=== PATIENT | female | born 1955 | race Caucasian/White ===

== ENCOUNTER → 2016-08-11 | Outpatient (CLI) | payer BC ==
[~2016-08-11] MED LIST: ESCI1TAB6 PO; GABA-113 PO; PRLSR20 PO; TRAM-10 PO; ZOLP5TAB PO
== END | disposition home or self-care (01) ==
LOC: C.PAPS 09:48
PROVIDERS: ATTEND Obstetrics & Gynecology
DX: Z01.419 Encounter for gynecological examination (general) (routine) without abnormal findings (principal)

== ENCOUNTER → 2016-10-28 | Outpatient (CLI) | payer BC ==
--- NOTE | 2016-10-29 13:49 | MAMMOGRAPHY REPORT ---
BILATERAL DIGITAL SCREENING MAMMOGRAM TOMOSYNTHESIS WITH CAD: 10/28/2016 CLINICAL HISTORY: Routine screening. Patient has no complaints. TECHNIQUE: Breast tomosynthesis in addition to standard 2D mammography was performed. Current study was also evaluated with a Computer Aided Detection (CAD) system. COMPARISON: Comparison is made to exams dated: 08/29/2013 mammogram, 07/19/2012 mammogram, 07/15/2011 ma mmogram, 07/10/2010 mammogram, 07/05/2009 mammogram - [facility], and 05/31/2008. BREAST COMPOSITION: The tissue of both breasts is extremely dense, which lowers the sensitivity of m ammography. FINDINGS: The parenchymal pattern is unchanged. No developing mass, architectural distortion or clus ter of suspicious microcalcifications is seen in either breast. IMPRESSION: ACR BI-RADS CATEGORY 2: BENIGN There is no mammographic evidence of malignancy. A 1 year screening mammogram is recommended. The pa tient will receive written notification of the results. Approximately 10% of breast cancers are not detected with mammography. A negative mammographic report should not delay biopsy if a clinically suggestive mass is present. Tea Springer M.D. ay/:10/28/2016 16:34:40 Demand Equipment Repairer: Anna GRIFFIN(Cielo)(M), [facility] letter sent: Normal 1/2 BI-RADS Code: ACR BI-RADS Category 2: Benign
== END | disposition home or self-care (01) ==
LOC: C.MAMM 15:46
PROVIDERS: ATTEND Obstetrics & Gynecology
DX: Z12.31 Encounter for screening mammogram for malignant neoplasm of breast (principal)

== ENCOUNTER 2021-01-06 13:16 | Inpatient (IN) ==
[2021-01-06 14:04] LABS: Appearance Urine Clear (Clear); Bilirubin Urine Negative (Negative); Blood Urine Negative (Negative); Color Urine Yellow; Glucose Urine UA Negative (Negative); Ketones Urine Negative (Negative); Leukocyte Esterase Urine Negative (Negative); Nitrite Urine Negative (Negative); Protein Urine Negative (Negative); Specific Gravity Urine 1.005 (1.000-1.030); Urobilinogen Urine Negative (Negative); pH Urine 8.5 (4.5-7.5)
--- NOTE | 2021-01-06 14:06 | Emergency Department Note ---
Impression & Plan Anxiety, Depression ED Provider Note NAME: MICHAEL MONTOYA AGE: 65 SEX: F : 1955 ARRIVES VIA: Ambulance INFORMANT: Patient ED PROVIDER(S): Galileo Goodwin DO CHIEF COMPLAINT: Depression HPI: Patient is a 65-year-old female who presents the ER for anxiety. She notes that she has not been eating or drinking much for the past several weeks. She has been sleeping all day. She does not want to leave her bed. She was seen and evaluated here and discharged. She was seen by her PCP who referred her in for admission to [facility]. She needs medical clearance. Denies any headache or change in vision. No chest pain or shortness of breath. No nausea, or vomiting. She notes that she is having trouble having bowel movements but she is not eating anything. Last bowel movement was within the past 48 hours. She still passing gas. No dysuria, urgency, or frequency. Denies any suicidal homicidal ideations. ROS: See above HPI for pertinent positives & negatives. A total of 10 systems reviewed and were otherwise negative. PAST MEDICAL HISTORY:See Below PAST SURGICAL HISTORY:See Below FAMILY HISTORY:See Below SOCIAL HISTORY:See Below HOME MEDICATIONS:See Below ALLERGIES:See Below VITALS:See Below PHYSICAL EXAMINATION: GENERAL: Sitting up in bed, alert, well appearing, well nourished, no distress, non-toxic EYE EXAM: normal conjunctiva. PERRL and EOM's grossly intact. OROPHARYNX: no exudate, no erythema, lips, buccal mucosa, and tongue normal and mucous membranes are moist NECK: supple, no nuchal rigidity, no adenopathy, non-tender LUNGS: Clear to auscultation. Normal chest wall mechanics HEART: no murmurs, S1 normal and S2 normal ABDOMEN: abdomen soft, non-tender, normo-active bowel sounds, no masses, no rebound or guarding. BACK: Back is symmetrical on inspection and there is no deformity, no midline tenderness, no CVA tenderness. SKIN: no rashes and no bruising UPPER EXTREMITIES: upper extremities are grossly normal. LOWER EXTREMITIES: No pitting edema. NEURO EXAM: Normal sensorium, cranial nerves II-XII grossly intact, normal speech, no gross weakness of arms, no gross weakness of legs. PSYCH: Denies any suicidal homicidal ideations. No auditory or visual hallucinations. MEDICAL DECISION MAKING: Patient is a 65-year-old female who presents the ER as she just does not feel right in the head. She notes that she feels as though she is a burden to everyone else. Her is tired of listening to her. She notes that she cannot get out of bed. She not eating or drinking. She was referred and for possible placement. On exam she is completely benign abdominal exam. She has no other complaints otherwise. She notes that she does have trouble going to the bathroom but she has not been eating anything. She was updated bedside and was admitted to 3 S. after review. Observation Status: Indication: Medical stability Patient with no pertinent family history, was seen first at 1330 hrs and was necessary in order to determine medical stability and avoid unnecessary admission. Upon reevaluation, 3.5 hours of observation revealed that the patient should be admitted. Disposition date and time 01/06/2021 at 5 PM. Triage Nursing notes reviewed. Limited review of prior medical records performed Vital Signs: reviewed and remarkable for HTN Differential diagnosis: Mood disorder, infection, hypoglycemia, electrolyte abnormalities, cardiac sources, intracerebral event, toxicologic, trauma, neurologic, as well as other pathologies. ER treatment provided: See below Diagnostics interpreted by me: Laboratory studies: As stated above and show below. Imaging studies: See below Consultation(s): none Procedures: none Critical Care: None Past Med/Surg History Medical History Anxiety GERD (gastroesophageal reflux disease) History of TMJ disorder Hx of glaucoma RT/LEFT EYE LASER PROCEDURE Osteoarthritis Surgical History Fusion of spine CERVICAL (GOOD ROM) History of bilateral tubal ligation History of colonoscopy History of esophagogastroduodenoscopy (EGD) WITH ESOPHAGEAL STRETCHING History of surgery on arm RT RADIAL TUNNEL History of tooth extraction [place] teeth removed Family History Mother Family history of diabetes mellitus Social History Smoking Status: Never smoker Second Hand Exposure: No; Hx Alcohol Use: No Preferred Language: Danish Juvenile Court Liaison Required: No Beliefs That Will Affect Care: None Current Living Situation: Spouse Feels Safe at Home: Yes Assistive Devices: Contacts and Glasses Allergies Allergies Allergy/AdvReac Type Severity Reaction Status Date / Time No Known Allergies Allergy N/A Verified 01/06/21 15:49 Home Meds Home Medications Medication Instructions Recorded Confirmed alprazolam 0.5 mg tablet (Xanax) 0.5 mg PO DAILY PRN 02/20/20 01/06/21 famotidine 20 mg tablet 20 mg PO DAILY PRN 02/20/20 01/06/21 zolpidem 5 mg tablet (Ambien) 10 mg PO HS PRN 02/20/20 01/06/21 acetaminophen 500 mg capsule 1,000 mg PO Q6 PRN 01/06/21 01/06/21 escitalopram oxalate 10 mg tablet 10 mg PO QAM 01/06/21 01/06/21 (Lexapro) omeprazole magnesium 20 mg 20 mg PO DAILY 01/06/21 01/06/21 tablet,delayed release (Prilosec OTC) oxycodone 5 mg tablet 5 mg PO Q4 PRN 01/06/21 01/06/21 Results & Data (ED) Vital Signs Vital Signs - 24 hr 01/06/21 13:35 01/06/21 15:23 01/06/21 17:24 Temperature 36.5 C Temperature Source Oral Pulse Rate 90 90 Pulse Rate [Radial] 86 Pulse Rhythm [Radial] Regular Respiratory Rate 18 18 16 Respiratory Effort / Characteristics Non-Labored Respiratory Depth Normal Respiratory Pattern Regular Blood Pressure 159/96 H 158/97 H Blood Pressure [Right Arm] 139/86 Blood Pressure Mean 117 Blood Pressure Mean [Right Arm] 103 Pulse Oximetry 97 98 97 Oxygen Delivery Method Room Air Room Air Room Air Sepsis Recent Fever Within 48 Hours No Sepsis New/Unexplained Change in Mental Status No Sepsis Action Taken by Nursing No Action Required Laboratory Data Result diagrams: 01/06/21 13:52 01/06/21 13:52 Lab Results 01/06/21 01/06/21 01/06/21 Range/Units 13:26 13:26 13:52 WBC 5.34 (4.8-10.8) K/uL RBC 4.44 (4.2-5.4) M/uL Hgb 13.1 (12.0-16.0) g/dL Hct 39.8 (37-47) % MCV 89.6 (80-100) fL MCH 29.5 (25-34) pg MCHC 32.9 (32-36) g/dL RDW Std Deviation 42.6 (36.4-46.3) fL RDW Coeff of Terry 12.9 (11.5-14.5) % Plt Count 257 (130-400) K/uL MPV 9.4 (7.4-10.4) fL Immature Gran % (Auto) 0.2 % Neut % (Auto) 66.3 % Lymph % (Auto) 23.2 % Isabela % (Auto) 9.4 % Eos % (Auto) 0.7 % Baso % (Auto) 0.2 % Neut # (Auto) 3.54 (1.4-6.5) K/uL Lymph # (Auto) 1.24 (1.2-3.4) K/uL Isabela # (Auto) 0.50 (0.11-0.59) K/uL Eos # (Auto) 0.04 (0-0.5) K/uL Baso # (Auto) 0.01 (0-0.2) K/uL Immature Gran # (Auto) 0.01 (0.00-0.02) K/uL Sodium (136-145) mmol/L Potassium (3.5-5.1) mmol/L Chloride (98-107) mmol/L Carbon Dioxide (21-32) mmol/L Anion Gap (3-11) BUN (7-18) mg/dl Creatinine (0.6-1.2) mg/dl Est Cr Clr Drug Dosing Est GFR ( Amer) ml/min Est GFR (Non-Af Amer) ml/min BUN/Creatinine Ratio (10-20) Glucose (70-99) mg/dl Calcium (8.5-10.1) mg/dl Total Bilirubin (0.2-1) mg/dl AST (15-37) U/L ALT (12-78) U/L Alkaline Phosphatase (45-117) U/L Total Protein (6.4-8.2) gm/dl Albumin (3.4-5.0) gm/dl Globulin (2.5-4.0) gm/dl Albumin/Globulin Ratio (0.9-2) TSH (0.300-4.500) uIu/ml Urine Color Yellow Urine Appearance Clear (Clear) Urine pH 8.5 H (4.5-7.5) Ur Specific [place] 1.005 (1.000-1.030) Urine Protein Negative (Negative) Urine Glucose (UA) Negative (Negative) Urine Ketones Negative (Negative) Urine Blood Negative (Negative) Urine Nitrite Negative (Negative) Urine Bilirubin Negative (Negative) Urine Urobilinogen Negative (Negative) Ur Leukocyte Esterase Negative (Negative) Salicylates (2.8-20) mg/dl Urine Opiates Screen Neg (Neg) Ur Methadone, Qual Neg (Neg) Acetaminophen (10-30) ug/ml Urine Barbiturates Neg (Neg) Ur Phencyclidine (PCP) Neg (Neg) U Amphetamin/Meth Scrn Neg (Neg) MDMA (Ecstasy) Screen Neg (Neg) U Benzodiazepines Scrn Neg (Neg) Ur Cocaine Metabolite Neg (Neg) U Marijuana (THC) Screen Neg (Neg) Ethyl Alcohol mg/dL (0-3) mg/dl COVID-19 Eval Order SARS-CoV-2, RNA, NAAT (NEGATIVE) 01/06/21 01/06/21 01/06/21 Range/Units 13:52 13:52 13:52 WBC (4.8-10.8) K/uL RBC (4.2-5.4) M/uL Hgb (12.0-16.0) g/dL Hct (37-47) % MCV (80-100) fL MCH (25-34) pg MCHC (32-36) g/dL RDW Std Deviation (36.4-46.3) fL RDW Coeff of Terry (11.5-14.5) % Plt Count (130-400) K/uL MPV (7.4-10.4) fL Immature Gran % (Auto) % Neut % (Auto) % Lymph % (Auto) % Isabela % (Auto) % Eos % (Auto) % Baso % (Auto) % Neut # (Auto) (1.4-6.5) K/uL Lymph # (Auto) (1.2-3.4) K/uL Isabela # (Auto) (0.11-0.59) K/uL Eos # (Auto) (0-0.5) K/uL Baso # (Auto) (0-0.2) K/uL Immature Gran # (Auto) (0.00-0.02) K/uL Sodium 141 (136-145) mmol/L Potassium 3.5 (3.5-5.1) mmol/L Chloride 107 (98-107) mmol/L Carbon Dioxide 29 (21-32) mmol/L Anion Gap 5.0 (3-11) BUN 5 L (7-18) mg/dl Creatinine 0.77 (0.6-1.2) mg/dl Est Cr Clr Drug Dosing Not Reportable Est GFR ( Amer) 95.2 ml/min Est GFR (Non-Af Amer) 82.2 ml/min BUN/Creatinine Ratio 6.3 L (10-20) Glucose 99 (70-99) mg/dl Calcium 8.9 (8.5-10.1) mg/dl Total Bilirubin 0.4 (0.2-1) mg/dl AST 17 (15-37) U/L ALT 17 (12-78) U/L Alkaline Phosphatase 91 (45-117) U/L Total Protein 7.1 (6.4-8.2) gm/dl Albumin 3.6 (3.4-5.0) gm/dl Globulin 3.5 (2.5-4.0) gm/dl Albumin/Globulin Ratio 1.0 (0.9-2) TSH 1.650 (0.300-4.500) uIu/ml Urine Color Urine Appearance (Clear) Urine pH (4.5-7.5) Ur Specific [place] (1.000-1.030) Urine Protein (Negative) Urine Glucose (UA) (Negative) Urine Ketones (Negative) Urine Blood (Negative) Urine Nitrite (Negative) Urine Bilirubin (Negative) Urine Urobilinogen (Negative) Ur Leukocyte Esterase (Negative) Salicylates < 1.7 L (2.8-20) mg/dl Urine Opiates Screen (Neg) Ur Methadone, Qual (Neg) Acetaminophen < 2 L (10-30) ug/ml Urine Barbiturates (Neg) Ur Phencyclidine (PCP) (Neg) U Amphetamin/Meth Scrn (Neg) MDMA (Ecstasy) Screen (Neg) U Benzodiazepines Scrn (Neg) Ur Cocaine Metabolite (Neg) U Marijuana (THC) Screen (Neg) Ethyl Alcohol mg/dL < 3.0 (0-3) mg/dl COVID-19 Eval Order SARS-CoV-2, RNA, NAAT (NEGATIVE) 01/06/21 01/06/21 Range/Units 13:58 13:58 WBC (4.8-10.8) K/uL RBC (4.2-5.4) M/uL Hgb (12.0-16.0) g/dL Hct (37-47) % MCV (80-100) fL MCH (25-34) pg MCHC (32-36) g/dL RDW Std Deviation (36.4-46.3) fL RDW Coeff of Terry (11.5-14.5) % Plt Count (130-400) K/uL MPV (7.4-10.4) fL Immature Gran % (Auto) % Neut % (Auto) % Lymph % (Auto) % Isabela % (Auto) % Eos % (Auto) % Baso % (Auto) % Neut # (Auto) (1.4-6.5) K/uL Lymph # (Auto) (1.2-3.4) K/uL Isabela # (Auto) (0.11-0.59) K/uL Eos # (Auto) (0-0.5) K/uL Baso # (Auto) (0-0.2) K/uL Immature Gran # (Auto) (0.00-0.02) K/uL Sodium (136-145) mmol/L Potassium (3.5-5.1) mmol/L Chloride (98-107) mmol/L Carbon Dioxide (21-32) mmol/L Anion Gap (3-11) BUN (7-18) mg/dl Creatinine (0.6-1.2) mg/dl Est Cr Clr Drug Dosing Est GFR ( Amer) ml/min Est GFR (Non-Af Amer) ml/min BUN/Creatinine Ratio (10-20) Glucose (70-99) mg/dl Calcium (8.5-10.1) mg/dl Total Bilirubin (0.2-1) mg/dl AST (15-37) U/L ALT (12-78) U/L Alkaline Phosphatase (45-117) U/L Total Protein (6.4-8.2) gm/dl Albumin (3.4-5.0) gm/dl Globulin (2.5-4.0) gm/dl Albumin/Globulin Ratio (0.9-2) TSH (0.300-4.500) uIu/ml Urine Color Urine Appearance (Clear) Urine pH (4.5-7.5) Ur Specific [place] (1.000-1.030) Urine Protein (Negative) Urine Glucose (UA) (Negative) Urine Ketones (Negative) Urine Blood (Negative) Urine Nitrite (Negative) Urine Bilirubin (Negative) Urine Urobilinogen (Negative) Ur Leukocyte Esterase (Negative) Salicylates (2.8-20) mg/dl Urine Opiates Screen (Neg) Ur Methadone, Qual (Neg) Acetaminophen (10-30) ug/ml Urine Barbiturates (Neg) Ur Phencyclidine (PCP) (Neg) U Amphetamin/Meth Scrn (Neg) MDMA (Ecstasy) Screen (Neg) U Benzodiazepines Scrn (Neg) Ur Cocaine Metabolite (Neg) U Marijuana (THC) Screen (Neg) Ethyl Alcohol mg/dL (0-3) mg/dl COVID-19 Eval [facility] SARS-CoV-2, RNA, NAAT NEGATIVE (NEGATIVE) Administered Medications Lorazepam (Lorazepam 0.5 Mg Tab) 0.5 mg PO Q4 PRN PRN Reason: Anxiety Stop: 02/05/21 17:19 Last Admin: 01/06/21 18:32 Dose: 0.5 mg Documented by: [id number] Discharge Plan Visit Data Chief Complaint: Mental Health Evaluation Stated Complaint: [facility] ED Provider: Galileo Goodwin Patient Disposition: Admitted As Inpatient Discharge Instructions Interventions: ED Discharge Assessment Last Done: 01/06/21 17:24
[2021-01-06 14:07] LABS: Basophils # (auto) 0.01 K/uL (0-0.2); Basophils % (auto) 0.2 %; Eosinophils # (auto) 0.04 K/uL (0-0.5); Eosinophils % (auto) 0.7 %; Hematocrit (blood only) 39.8 % (37-47); Hemoglobin 13.1 g/dL (12.0-16.0); Immature Granulocytes # (auto) 0.01 K/uL (0.00-0.02); Immature Granulocytes % (auto) 0.2 %; Lymphocytes # (auto) 1.24 K/uL (1.2-3.4); Lymphocytes % (auto) 23.2 %; Mean Corpuscular Hemoglobin 29.5 pg (25-34); Mean Corpuscular Hgb Conc 32.9 g/dL (32-36); Mean Corpuscular Volume 89.6 fL (80-100); Mean Platelet Volume 9.4 fL (7.4-10.4); Monocytes % (auto) 9.4 %; Neutrophils # (auto) 3.54 K/uL (1.4-6.5); Neutrophils % (auto) 66.3 %; Platelet Count 257 K/uL (130-400); RDW Coefficient of Variation 12.9 % (11.5-14.5); RDW Standard Deviation 42.6 fL (36.4-46.3); Red Blood Count 4.44 M/uL (4.2-5.4); White Blood Count 5.34 K/uL (4.8-10.8)
[2021-01-06 14:24] LABS: Alanine Aminotransferase 17 U/L (12-78); Albumin Level 3.6 gm/dl (3.4-5.0); Aspartate Aminotransferase 17 U/L (15-37); BUN Creatinine Ratio 6.3 (10-20); Blood Urea Nitrogen 5 mg/dl (7-18); Calcium 8.9 mg/dl (8.5-10.1); Carbon Dioxide 29 mmol/L (21-32); Chloride 107 mmol/L (98-107); Est GFR (African American) 95.2 ml/min; Est GFR (Non-African American) 82.2 ml/min; Glucose 99 mg/dl (70-99); Potassium 3.5 mmol/L (3.5-5.1); Sodium 141 mmol/L (136-145)
[2021-01-06 14:35] LABS: Alkaline Phosphatase 91 U/L (45-117); Bilirubin,Total 0.4 mg/dl (0.2-1); Globulin 3.5 gm/dl (2.5-4.0); Total Protein 7.1 gm/dl (6.4-8.2)
[2021-01-06 15:06] LABS: Acetaminophen < 2 ug/ml (10-30); Salicylate < 1.7 mg/dl (2.8-20)
[2021-01-06 15:07] LABS: Amphetamines+Metham, Urine Neg (Neg); Barbiturates, Urine Neg (Neg); Benzodiazepine, Urine Neg (Neg); Cocaine, Urine Neg (Neg); MDMA (Ecstacy), Urine Neg (Neg); Methadone, Urine Neg (Neg); Opiate, Urine Neg (Neg); Phencyclidine, Urine Neg (Neg)
[2021-01-06] MEDS ORDERED: SODIUM CHLORIDE 0.65% NA SOLN 45 ML (OCEAN) PRN (16:36)
[2021-01-06] MEDS ORDERED: BISMUTH SUBSALICYLATE LIQD 236 ML PO PRN (16:36)
[2021-01-06] MEDS ORDERED: MAGNESIUM HYDROXIDE SUSP 30 ML UDC PO PRN (16:36)
[2021-01-06] MEDS ORDERED: hydrOXYzine HCl 25 MG TAB PO PRN ×2 (16:36)
[2021-01-06] MEDS ORDERED: ACETAMINOPHEN 325 MG TAB PO PRN (16:36)
[2021-01-06] MEDS ORDERED: ALUMINUM/MAGNESIUM SUSP 30 ML UDC PO PRN (16:36)
[2021-01-06] MEDS ORDERED: FAMOTIDINE 20 MG TAB PO PRN (16:38)
[2021-01-06] MEDS ORDERED: LORazepam 0.5 MG TAB PO PRN (17:20)
[2021-01-06 17:27] VITALS: O2SAT 97
[2021-01-07] MEDS ORDERED: ESCITALOPRAM OXALATE 10 MG TAB PO SCH (09:00)
[2021-01-07] MEDS: PANTOprazole 40 MG TAB PO SCH (09:39)
[2021-01-07] MEDS ORDERED: ZOLPIDEM TARTRATE 10 MG TAB PO PRN (14:50)
[2021-01-07] MEDS ORDERED: SOD PHOSPHATE/SOD BIPHOSPHATE ENEMA 132 ML BTL PR STA (14:51)
--- NOTE | 2021-01-07 14:54 | History & Physical ---
Date of Service January 07, 2021 Impression / Recommendations Impression 65 yo female with severe vegetative symptoms of depression with anxious distress as evidence by somatic preoccupation. Admit for inability to care for self. (1) Major depressive disorder with current active episode: (2) Constipation: Constipation type: unspecified constipation type Qualified Code(s): K59.00 - Constipation, unspecified 01/07/21: The patient was admitted to the [facility] ([facility]) on q15 min checks (behavioral with suicide precautions) for safety. The patient will participate in group, recreational, and milieu therapies and will be offered additional individual and family sessions as clinically appropriate. Will taper Lexapro to 5 mg for 2 days and then d/c as able to tolerate/worse on higher dose and completed full trial. Resume gabapentin as previously effective for hs anxiety/restless legs/cramps and likely to be beneficial for pain. Will hold starting a new antidepressant until constipation resolved, as already taken a laxative and a suppository with minimal benefit will order stat fleet enema. Inventory Assets Strengths: verbal, hx of employment, local family Needs: increase insight in depression and acceptance of outpatient services Risk Factors Assessment : Yes Health Problems: Yes Substance Use Disorders: No Previous Attempt: No Family History of Suicide: No Protective Factors Assessment : Yes Employed: Yes ([employer]) Stable Relationships: Yes Supportive Family: Yes Psychiatric History Identifying Data MICHAEL MONTOYA is a 65-year-old F who currently lives in [place], has no formal psych hx prior to her back surgery in August 2020. She was admitted on 01/06/21 17:36 on a 201 voluntary commitment for inability to care for self at home due to depression and anxiety. Chief Complaint "I'm just so weak, and bloated, and embarrassed by my appearance". History of Present Illness Radha reports being in pain leading up to her back surgery in August and having difficulty with energy, sleep, mood following the procedure. She attributes onset of the issues to constipation from opiate pain medication (which she took sparingly as prescribed). She feels as though even when she discontinued regular use of these medications that the constipation did not resolve and limited her mobility. 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 Other stressors include her having his own series of surgeries and her mother's decline in health and ultimately fpc placement. Bed has become "my safe place" and she has extreme anxiety at doing even minor self care tasks. She gets upset when her encourages her to "do something". She feels her skin is pale and dry and notes muscles feels "limp" and reports losing 15 lbs. She has no appetite and feels worse after she eats. She feels hopeless and guilty but denies any thoughts to end her life. She notes some anxiety at baseline but nothing like the current preoccupation with her health and bowels. She reports that antidepressant medication has not been helpful and in fact she tends to feel worse at higher do ses. She reports inability to sleep without Ambien which has been a longstanding medication for her. Past Psychiatric History Outpatient Services: none Previous Psych Admissions: none History of Previous Suicide Attempt: No Past Medication Trials: Cymbalta, Xanax, gabapentin, Ambien, Lexapro Allergies Allergy/AdvReac Type Severity Reaction Status Date / Time No Known Allergies Allergy N/A Verified 01/06/21 15:49 Home Medications Medication Instructions Recorded Confirmed Type alprazolam 0.5 mg tablet (Xanax) 0.5 mg PO DAILY PRN 02/20/20 01/06/21 History famotidine 20 mg tablet 20 mg PO DAILY PRN 02/20/20 01/06/21 History zolpidem 5 mg tablet (Ambien) 10 mg PO HS PRN 02/20/20 01/06/21 History acetaminophen 500 mg capsule 1,000 mg PO Q6 PRN 01/06/21 01/06/21 History escitalopram oxalate 10 mg tablet 10 mg PO QAM 01/06/21 01/06/21 History (Lexapro) omeprazole magnesium 20 mg 20 mg PO DAILY 01/06/21 01/06/21 History tablet,delayed release (Prilosec OTC) oxycodone 5 mg tablet 5 mg PO Q4 PRN 01/06/21 01/06/21 History Family History Family History of: Depression (mother) Alcohol History Hx of Alcohol Use Over the Past 12 Months: No AUDIT Total Score: 0 Smoking Use Smoking Status: Never smoker Substance History Hx of Prescription Med Misuse Over the Past 12 Months: No Hx of Over the Counter Med Misuse Over the Past 12 Months: No Hx of Inhalent Misuse Over the Past 12 Months: No Hx of Organic Substance Use Over the Past 12 Months: No (previous use of cannabis) Hx of Illegal Substances/Street Drug Use Over Past 12 Months: No Problems as a Result of Past Substance Use: None Identified Personal History Living Arrangements: Home Highest Grade Completed: High School Graduate Employment Status: [employer] Employed (on leave) Marital Status: ( is several years younger) Number Of Children: 5, some local Beliefs That Will Affect Care: None Current Legal Problems: No Psychological Trauma History Comment: none reported Patient History Medical History Anxiety GERD (gastroesophageal reflux disease) History of TMJ disorder Hx of glaucoma RT/LEFT EYE LASER PROCEDURE Osteoarthritis Surgical History Fusion of spine CERVICAL (GOOD ROM) History of bilateral tubal ligation History of colonoscopy History of esophagogastroduodenoscopy (EGD) WITH ESOPHAGEAL STRETCHING History of surgery on arm RT RADIAL TUNNEL History of tooth extraction [place] teeth removed Family History Mother Family history of diabetes mellitus Social History Smoking Status: Never smoker Second Hand Exposure: No; Hx Alcohol Use: No Preferred Language: Montenegrin [employer] Required: No Beliefs That Will Affect Care: None Current Living Situation: Spouse Feels Safe at Home: Yes Assistive Devices: Contacts and Glasses Review of Systems Review of Systems: All systems reviewed & are unremarkable except as noted in HPI & below Physical Exam Psychiatric: Orientation: alert and oriented x 3 Apperance: appropriately dressed and appropriately groomed Eye Contact: good eye contact Motor Behavior: no abnormal motor movements Speech: + abnormal rate/rhythm/volume of speech Affect: + depressed affect and + anxious affect Mood: + depressed mood Thought Process: + perseveration Thought Content: reality based without delusions Suicidal Thoughts: denies suicidal thoughts Homicidal Thoughts: denies homicidal thoughts Hallucinations: no auditory hallucinations and no visual hallucinations Cognition: attention grossly intact and language grossly intact Estimated Intelligence: consistent with education level Insight: + limited insight Judgement: + limited judgement Vital Signs (Past 24 Hours): Last Vital Signs Temp 36.9 C 01/07/21 07:04 Pulse 112 H 01/07/21 07:04 Resp 18 01/07/21 07:04 BP 118/82 01/07/21 07:04 Pulse Ox 97 01/06/21 17:50 Exam Statement: A physical exam was performed in the ED by Buddy for the purposes of medical clearance. I accept that physical as correct and adequate for the purposes of the inpatient physical exam. Results & Data ([facility]) Laboratory Results Laboratory Results - last 24 hr 01/06/21 01/06/21 13:26 13:52 Salicylates < 1.7 L Urine Opiates Screen Neg Ur Methadone, Qual Neg Acetaminophen < 2 L Urine Barbiturates Neg Ur Phencyclidine (PCP) Neg U Amphetamin/Meth Scrn Neg MDMA (Ecstasy) Screen Neg U Benzodiazepines Scrn Neg Ur Cocaine Metabolite Neg U Marijuana (THC) Screen Neg Current Inpatient Medications Current Inpatient Medications: Current Inpatient Medications Acetaminophen (Acetaminophen 325 Mg Tab) 650 mg PO Q4H PRN PRN Reason: Headache or Minor Fever Stop: 02/05/21 16:35 Last Admin: 01/07/21 10:28 Dose: 650 mg Documented by: Al Hydrox/Mg Hydrox/Simethicone (Aluminum/Magnesium Susp 30 Ml Udc) 30 ml PO Q4H PRN PRN Reason: GI Upset Stop: 02/05/21 16:35 Bismuth Subsalicylate (Bismuth Subsalicylate Liqd 236 Ml) 15 ml PO PRN PRN PRN Reason: Loose Stool Stop: 02/05/21 16:35 Escitalopram Oxalate (Escitalopram Oxalate 10 Mg Tab) 10 mg PO QAM [facility] Stop: 02/06/21 08:59 Famotidine (Famotidine 20 Mg Tab) 20 mg PO DAILY PRN PRN Reason: HEART BURN Stop: 02/05/21 16:37 Hydroxyzine HCl (Hydroxyzine Hcl 25 Mg Tab) 50 mg PO HSZ PRN PRN Reason: Insomnia Stop: 02/05/21 16:35 Last Admin: 01/07/21 00:07 Dose: 50 mg Documented by: Hydroxyzine HCl (Hydroxyzine Hcl 25 Mg Tab) 25 mg PO Q4H PRN PRN Reason: Anxiety Stop: 02/05/21 16:35 Lorazepam (Lorazepam 0.5 Mg Tab) 0.5 mg PO Q4 PRN PRN Reason: Anxiety Stop: 02/05/21 17:19 Last Admin: 01/06/21 18:32 Dose: 0.5 mg Documented by: Magnesium Hydroxide (Magnesium Hydroxide Susp 30 Ml Udc) 30 ml PO DAILY PRN PRN Reason: Constipation Stop: 02/05/21 16:35 Pantoprazole Sodium (Pantoprazole 40 Mg Tab) 40 mg PO QAM TAMMY Stop: 02/06/21 08:59 Last Admin: 01/07/21 09:39 Dose: 40 mg Documented by: Sodium Biphosphate/Sodium Phosphate (Sod Phosphate/Sod Biphosphate Enema 132 Ml Btl) 132 ml OR NOW STA Stop: 01/07/21 14:52 Sodium Chloride (Sodium Chloride 0.65% Na Soln 45 Ml ([place])) 1 - 2 sprays NA PRN PRN PRN Reason: Nasal Dryness/Congestion Stop: 02/05/21 16:35 Zolpidem Tartrate (Zolpidem Tartrate 10 Mg Tab) 10 mg PO HS PRN PRN Reason: Sleep Stop: 02/06/21 14:49
[2021-01-07] MEDS: ESCITALOPRAM OXALATE 10 MG TAB PO SCH ×2 (16:01→21:23)
[2021-01-07] MEDS: GABAPENTIN 300 MG CAP PO SCH (21:32)
[2021-01-08] MEDS: PANTOprazole 40 MG TAB PO SCH (09:12)
[2021-01-08] MEDS: ESCITALOPRAM OXALATE 10 MG TAB PO SCH (09:12)
[2021-01-08] MEDS: DOCUSATE SODIUM 100 MG CAP PO SCH ×2 (13:55→20:50)
[2021-01-08] MEDS: POLYETHYLENE (MIRALAX) 17 GM PACK PO SCH ×2 (13:57→20:50)
[2021-01-08 14:44] LABS: Ferritin 16.5 ng/ml (8-388)
--- NOTE | 2021-01-08 18:34 | Psychiatric Progress Note ---
Date of Service January 08, 2021 Impression / Recommendations Impression 65 yo female with severe vegetative symptoms of depression with anxious distress as evidence by somatic preoccupation. Admit for inability to care for self. MNPR for severity of anxiety. (1) Major depressive disorder with current active episode: (2) Constipation: 01/08/21: patient agreed to bowel regimen (miralax and colace), celiac antibody testing and vitamin levels given reports of restless legs/malabsorption. Risks/benefits/alternatives reviewed re: trial of Remeron 15 mg po qhs. Patient agreed to trial starting this hs. 01/07/21: The patient was admitted to the [facility] ([facility]) on q15 min checks (behavioral with suicide precautions) for safety. The patient will participate in group, recreational, and milieu therapies and will be offered additional individual and family sessions as clinically appropriate. Will taper Lexapro to 5 mg for 2 days and then d/c as able to tolerate/worse on higher dose and completed full trial. Resume gabapentin as previously effective for hs anxiety/restless legs/cramps and likely to be beneficial for pain. Will hold starting a new antidepressant until constipation resolved, as already taken a laxative and a suppository with minimal benefit will order stat fleet enema. Inventory Assets Strengths: verbal, hx of employment, local family Needs: increase insight in depression and acceptance of outpatient services Risk Factors Assessment : Yes Health Problems: Yes Substance Use Disorders: No Previous Attempt: No Family History of Suicide: No Protective Factors Assessment : Yes Employed: Yes ([employer]) Stable Relationships: Yes Supportive Family: Yes Interval History Identifying Information 65 yo female admit 01/06/21 for inability to care for self due to depression and anxiety/somatic preoccupations. Chief Complaint "It really didn't do much". referring to enema Review of Systems Sleep Information Total Hours of Sleep: 6.5 Meal Information Percent Meal Consumed - Breakfast: 40 Percent Meal Consumed - Lunch: 50 Percent Meal Consumed - Dinner: 70 Subjective Subjective Patient was seen & assessed and interval progress reviewed with treatment team. remains preoccupied with bowels and poor sleep. Reviewed that nursing reported enema was effective, patient maintains mainly gas and still feels bloated, various excuses why she prefers to stay in room rather than going to groups. Discussed cognitive distortions and sick behaviors perpetuating her anxiety. She maintains she'll "live her forever" and lose for "all I've put him through". Physical Exam Psychiatric Orientation: alert and oriented x 3 Apperance: appropriately dressed and appropriately groomed Eye Contact: good eye contact Motor Behavior: no abnormal motor movements Speech: + abnormal rate/rhythm/volume of speech Affect: + depressed affect and + anxious affect Mood: + depressed mood Thought Process: + perseveration Thought Content: reality based without delusions Suicidal Thoughts: denies suicidal thoughts Homicidal Thoughts: denies homicidal thoughts Hallucinations: no auditory hallucinations and no visual hallucinations Cognition: attention grossly intact and language grossly intact Estimated Intelligence: consistent with education level Insight: + limited insight Judgement: + limited judgement Vital Signs (Past 24 Hours) Last Vital Signs Temp 36.6 C 01/08/21 06:42 Pulse 80 01/08/21 06:42 Resp 16 01/08/21 06:42 BP 105/72 01/08/21 06:43 Pulse Ox 97 01/06/21 17:50 Results & Data ([facility]) Laboratory Results Laboratory Results - last 24 hr 01/08/21 01/08/21 01/08/21 13:52 13:52 13:52 Iron 102 TIBC 395 Ferritin 16.5 Vitamin B12 Pending Vit D 1,25-Dihyd Total Pending 1,25 Dihydroxy Vit D2 Pending 1,25 Dihydroxy Vit D3 Pending Folate Pending IgA Pending Tiss Transglutamin IgA Pending Celiac Disease Interp Pending Current Inpatient Medications Current Inpatient Medications: Current Inpatient Medications Acetaminophen (Acetaminophen 325 Mg Tab) 650 mg PO Q4H PRN PRN Reason: Headache or Minor Fever Stop: 02/05/21 16:35 Last Admin: 01/07/21 10:28 Dose: 650 mg Documented by: Al Hydrox/Mg Hydrox/Simethicone (Aluminum/Magnesium Susp 30 Ml Udc) 30 ml PO Q4H PRN PRN Reason: GI Upset Stop: 02/05/21 16:35 Bismuth Subsalicylate (Bismuth Subsalicylate Liqd 236 Ml) 15 ml PO PRN PRN PRN Reason: Loose Stool Stop: 02/05/21 16:35 Docusate Sodium (Docusate Sodium 100 Mg Cap) 100 mg PO BID TAMMY Stop: 02/07/21 12:59 Last Admin: 01/08/21 13:55 Dose: 100 mg Documented by: Escitalopram Oxalate (Escitalopram Oxalate 10 Mg Tab) 10 mg PO QAM TAMMY Stop: 02/06/21 14:59 Last Admin: 01/08/21 09:12 Dose: 10 mg Documented by: Famotidine (Famotidine 20 Mg Tab) 20 mg PO DAILY PRN PRN Reason: HEART BURN Stop: 02/05/21 16:37 Gabapentin (Gabapentin 300 Mg Cap) 300 mg PO HS TAMMY Stop: 02/06/21 21:59 Last Admin: 01/07/21 21:32 Dose: 300 mg Documented by: Hydroxyzine HCl (Hydroxyzine Hcl 25 Mg Tab) 50 mg PO HSZ PRN PRN Reason: Insomnia Stop: 02/05/21 16:35 Last Admin: 01/07/21 00:07 Dose: 50 mg Documented by: Hydroxyzine HCl (Hydroxyzine Hcl 25 Mg Tab) 25 mg PO Q4H PRN PRN Reason: Anxiety Stop: 02/05/21 16:35 Lorazepam (Lorazepam 0.5 Mg Tab) 0.5 mg PO Q4 PRN PRN Reason: Anxiety Stop: 02/05/21 17:19 Last Admin: 01/06/21 18:32 Dose: 0.5 mg Documented by: Magnesium Hydroxide (Magnesium Hydroxide Susp 30 Ml Udc) 30 ml PO DAILY PRN PRN Reason: Constipation Stop: 02/05/21 16:35 Mirtazapine (Mirtazapine Tab 15 Mg Tab) 15 mg PO HS TAMMY Stop: 02/07/21 21:59 Pantoprazole Sodium (Pantoprazole 40 Mg Tab) 40 mg PO QAM TAMMY Stop: 02/06/21 08:59 Last Admin: 01/08/21 09:12 Dose: 40 mg Documented by: Polyethylene Glycol (Polyethylene (Miralax) 17 Gm Pack) 17 gm PO BID TAMMY Stop: 02/07/21 12:59 Last Admin: 01/08/21 13:57 Dose: 17 gm Documented by: Sodium Chloride (Sodium Chloride 0.65% Na Soln 45 Ml ([place])) 1 - 2 sprays NA PRN PRN PRN Reason: Nasal Dryness/Congestion Stop: 02/05/21 16:35 Zolpidem Tartrate (Zolpidem Tartrate 10 Mg Tab) 10 mg PO HS PRN PRN Reason: Sleep Stop: 10/14/21 14:49 Post Discharge Appointments Primary Care Physician Name Of Family Doctor: Dr. Delores Hua Date of Appointment with PCP: 02/24/21 (1) Constipation Constipation type: unspecified constipation type Qualified Code(s): K59.00 - Constipation, unspecified
[2021-01-08 20:15] LABS: Folate (Folic Acid) 16.1 ng/ml (>5.38)
[2021-01-08] MEDS: GABAPENTIN 300 MG CAP PO SCH (20:49)
[2021-01-08] MEDS: MIRTAZAPINE TAB 15 MG TAB PO SCH (20:49)
[2021-01-09] MEDS: POLYETHYLENE (MIRALAX) 17 GM PACK PO SCH ×2 (09:01→21:24)
[2021-01-09] MEDS: PANTOprazole 40 MG TAB PO SCH (09:02)
[2021-01-09] MEDS: DOCUSATE SODIUM 100 MG CAP PO SCH ×2 (09:02→21:24)
[2021-01-09] MEDS: ESCITALOPRAM OXALATE 10 MG TAB PO SCH (12:54)
--- NOTE | 2021-01-09 16:31 | Psychiatric Progress Note ---
Date of Service January 09, 2021 Impression / Recommendations Impression 65 yo female with severe vegetative symptoms of depression with anxious distress as evidence by somatic preoccupation. Admit for inability to care for self. MNPR for severity of anxiety. 01/09/21: sleep improving but patient denies improvement, moving bowels but remains somatically preoccupied. (1) Major depressive disorder with current active episode: (2) Constipation: 01/09/21: patient hesitant but ultimately agreed to some standing (temporary) doses of Ativan, continue Remeron trial and bowel regimen. 01/08/21: patient agreed to bowel regimen (miralax and colace), celiac antibody testing and vitamin levels given reports of restless legs/malabsorption. Risks/benefits/alternatives reviewed re: trial of Remeron 15 mg po qhs. Patient agreed to trial starting this hs. 01/07/21: The patient was admitted to the [facility] ([facility]) on q15 min checks (behavioral with suicide precautions) for safety. The patient will participate in group, recreational, and milieu therapies and will be offered additional individual and family sessions as clinically appropriate. Will taper Lexapro to 5 mg for 2 days and then d/c as able to tolerate/worse on higher dose and completed full trial. Resume gabapentin as previously effective for hs anxiety/restless legs/cramps and likely to be beneficial for pain. Will hold starting a new antidepressant until constipation resolved, as already taken a laxative and a suppository with minimal benefit will order stat fleet enema. Inventory Assets Strengths: verbal, hx of employment, local family Needs: increase insight in depression and acceptance of outpatient services Risk Factors Assessment : Yes Health Problems: Yes Substance Use Disorders: No Previous Attempt: No Family History of Suicide: No Protective Factors Assessment : Yes Employed: Yes ([employer]) Stable Relationships: Yes Supportive Family: Yes Interval History Identifying Information 65 yo female admit 01/06/21 for inability to care for self due to depression and anxiety/somatic preoccupations. Chief Complaint "I'm just a mess, there is no hope, it smells in here, I'm so embarrassed". Review of Systems Sleep Information Total Hours of Sleep: 6 Sleep Comments: pt on q-15 minute checks Meal Information Percent Meal Consumed - Breakfast: 50 Percent Meal Consumed - Lunch: 10 Percent Meal Consumed - Dinner: 70 Subjective Subjective Patient was seen & assessed and interval progress reviewed with nursing and social work. Patient seen out of room earlier this am but remains avoidance of process groups. compares herself to college students on unit and upset with belief she won't get better. Focussed on bowels "churning" and not evacuating encough even though clearly passing stool and no smell in room from . She continues to state she can't focus due to her ruminative thoughts. Physical Exam Psychiatric Orientation: alert and oriented x 3 Apperance: appropriately dressed and appropriately groomed Eye Contact: good eye contact Motor Behavior: no abnormal motor movements Speech: + abnormal rate/rhythm/volume of speech Affect: + depressed affect and + anxious affect Mood: + depressed mood Thought Process: + perseveration Thought Content: reality based without delusions Suicidal Thoughts: denies suicidal thoughts Homicidal Thoughts: denies homicidal thoughts Hallucinations: no auditory hallucinations and no visual hallucinations Cognition: attention grossly intact and language grossly intact Estimated Intelligence: consistent with education level Insight: + limited insight Judgement: + limited judgement Vital Signs (Past 24 Hours) Last Vital Signs Temp 36.8 C 01/09/21 07:00 Pulse 106 H 01/09/21 07:00 Resp 18 01/09/21 07:00 BP 92/62 L 01/09/21 07:00 Pulse Ox 97 01/06/21 17:50 Results & Data ([facility]) Laboratory Results Laboratory Results - last 24 hr 01/08/21 13:52 Vitamin B12 248 Folate 16.10 Current Inpatient Medications Current Inpatient Medications: Current Inpatient Medications Acetaminophen (Acetaminophen 325 Mg Tab) 650 mg PO Q4H PRN PRN Reason: Headache or Minor Fever Stop: 02/05/21 16:35 Last Admin: 01/07/21 10:28 Dose: 650 mg Documented by: Al Hydrox/Mg Hydrox/Simethicone (Aluminum/Magnesium Susp 30 Ml Udc) 30 ml PO Q4H PRN PRN Reason: GI Upset Stop: 02/05/21 16:35 Bismuth Subsalicylate (Bismuth Subsalicylate Liqd 236 Ml) 15 ml PO PRN PRN PRN Reason: Loose Stool Stop: 02/05/21 16:35 Docusate Sodium (Docusate Sodium 100 Mg Cap) 100 mg PO BID TAMMY Stop: 02/07/21 12:59 Last Admin: 01/09/21 09:02 Dose: 100 mg Documented by: Famotidine (Famotidine 20 Mg Tab) 20 mg PO DAILY PRN PRN Reason: HEART BURN Stop: 02/05/21 16:37 Gabapentin (Gabapentin 300 Mg Cap) 300 mg PO HS TAMMY Stop: 02/06/21 21:59 Last Admin: 01/08/21 20:49 Dose: 300 mg Documented by: Hydroxyzine HCl (Hydroxyzine Hcl 25 Mg Tab) 50 mg PO HSZ PRN PRN Reason: Insomnia Stop: 02/05/21 16:35 Last Admin: 01/07/21 00:07 Dose: 50 mg Documented by: Hydroxyzine HCl (Hydroxyzine Hcl 25 Mg Tab) 25 mg PO Q4H PRN PRN Reason: Anxiety Stop: 02/05/21 16:35 Lorazepam (Lorazepam 0.5 Mg Tab) 0.5 mg PO Q4 PRN PRN Reason: Anxiety Stop: 02/05/21 17:19 Last Admin: 01/06/21 18:32 Dose: 0.5 mg Documented by: Lorazepam (Lorazepam 0.5 Mg Tab) 0.5 mg PO BIDM TAMMY Stop: 02/08/21 17:44 Magnesium Hydroxide (Magnesium Hydroxide Susp 30 Ml Udc) 30 ml PO DAILY PRN PRN Reason: Constipation Stop: 02/05/21 16:35 Mirtazapine (Mirtazapine Tab 15 Mg Tab) 15 mg PO HS TAMMY Stop: 02/07/21 21:59 Last Admin: 01/08/21 20:49 Dose: 15 mg Documented by: Pantoprazole Sodium (Pantoprazole 40 Mg Tab) 40 mg PO QAM TAMMY Stop: 02/06/21 08:59 Last Admin: 01/09/21 09:02 Dose: 40 mg Documented by: Polyethylene Glycol (Polyethylene (Miralax) 17 Gm Pack) 17 gm PO BID TAMMY Stop: 02/07/21 12:59 Last Admin: 01/09/21 09:01 Dose: 17 gm Documented by: Sodium Chloride (Sodium Chloride 0.65% Na Soln 45 Ml ([place])) 1 - 2 sprays NA PRN PRN PRN Reason: Nasal Dryness/Congestion Stop: 02/05/21 16:35 Zolpidem Tartrate (Zolpidem Tartrate 10 Mg Tab) 10 mg PO DAILY TAMMY Stop: 02/08/21 23:29 Post Discharge Appointments Primary Care Physician Name Of Family Doctor: Dr. Delores Hua Date of Appointment with PCP: 02/24/21 (1) Constipation Constipation type: unspecified constipation type Qualified Code(s): K59.00 - Constipation, unspecified
[2021-01-09] MEDS: LORazepam 0.5 MG TAB PO SCH (17:35)
[2021-01-09] MEDS: MIRTAZAPINE TAB 15 MG TAB PO SCH (21:24)
[2021-01-09] MEDS: GABAPENTIN 300 MG CAP PO SCH (21:24)
[2021-01-09] MEDS: ZOLPIDEM TARTRATE 10 MG TAB PO SCH (23:34)
[2021-01-10] MEDS: PANTOprazole 40 MG TAB PO SCH (09:49)
[2021-01-10] MEDS: LORazepam 0.5 MG TAB PO SCH ×2 (09:49→18:12)
[2021-01-10] MEDS: POLYETHYLENE (MIRALAX) 17 GM PACK PO SCH (10:00)
[2021-01-10] MEDS: DOCUSATE SODIUM 100 MG CAP PO SCH (10:00)
--- NOTE | 2021-01-10 12:49 | Psychiatric Progress Note ---
Date of Service January 10, 2021 Impression / Recommendations Impression 65 yo female with severe vegetative symptoms of depression with anxious distress as evidence by somatic preoccupation. Admit for inability to care for self. MNPR for severity of anxiety. 01/10/21: minimal improvement (1) Major depressive disorder with current active episode: (2) Constipation: 01/10/21: scale back bowel regimen, continue BID Ativan, Remeron 15 mg hs, and standing Ambien. Patient less hopeless today but not eating consistently and remains unable to care for self outside of the hospital. 01/09/21: patient hesitant but ultimately agreed to some standing (temporary) doses of Ativan, continue Remeron trial and bowel regimen. 01/08/21: patient agreed to bowel regimen (miralax and colace), celiac antibody testing and vitamin levels given reports of restless legs/malabsorption. Risks/benefits/alternatives reviewed re: trial of Remeron 15 mg po qhs. Patient agreed to trial starting this hs. 01/07/21: The patient was admitted to the [facility] ([facility]) on q15 min checks (behavioral with suicide precautions) for safety. The patient will participate in group, recreational, and milieu therapies and will be offered additional individual and family sessions as clinically appropriate. Will taper Lexapro to 5 mg for 2 days and then d/c as able to tolerate/worse on higher dose and completed full trial. Resume gabapentin as previously effective for hs anxiety/restless legs/cramps and likely to be beneficial for pain. Will hold starting a new antidepressant until constipation resolved, as already taken a laxative and a suppository with minimal benefit will order stat fleet enema. Inventory Assets Strengths: verbal, hx of employment, local family Needs: increase insight in depression and acceptance of outpatient services Risk Factors Assessment : Yes Health Problems: Yes Substance Use Disorders: No Previous Attempt: No Family History of Suicide: No Protective Factors Assessment : Yes Employed: Yes ([employer]) Stable Relationships: Yes Supportive Family: Yes Interval History Identifying Information 65 yo female admit 01/06/21 for inability to care for self due to depression and anxiety/somatic preoccupations. Chief Complaint "I'm just not better, I can't go to those groups, now I go to the bathroom too much". Review of Systems Sleep Information Total Hours of Sleep: 6.5 Sleep Comments: pt given lissaien per rn. pt on q-15 minute checks Meal Information Percent Meal Consumed - Breakfast: 100 Percent Meal Consumed - Lunch: 10 Percent Meal Consumed - Dinner: 0 Subjective Subjective Patient was seen & assessed and interval progress reviewed with treatment team. Patient reports her appetite is improved but she is afraid to come out to meals as she may not make it to the bathroom in time if she needs to have a bowel movement. Stool softener and Miralax held this am. Patient remains focussed on her appearance but feels "maybe my anxiety is a little better". She is more direct in conversation today. Physical Exam Psychiatric Orientation: alert and oriented x 3 Apperance: appropriately dressed and appropriately groomed Eye Contact: good eye contact Motor Behavior: no abnormal motor movements Speech: + abnormal rate/rhythm/volume of speech Affect: + anxious affect Mood: + depressed mood Thought Process: + perseveration (somatic preoccupation) Thought Content: reality based without delusions Suicidal Thoughts: denies suicidal thoughts Homicidal Thoughts: denies homicidal thoughts Hallucinations: no auditory hallucinations and no visual hallucinations Cognition: attention grossly intact and language grossly intact Estimated Intelligence: consistent with education level Insight: + limited insight Judgement: + limited judgement Vital Signs (Past 24 Hours) Last Vital Signs Temp 36.9 C 01/10/21 06:45 Pulse 87 01/10/21 06:45 Resp 16 01/10/21 06:45 BP 116/75 01/10/21 06:45 Pulse Ox 97 01/06/21 17:50 Results & Data ([facility]) Current Inpatient Medications Current Inpatient Medications: Current Inpatient Medications Acetaminophen (Acetaminophen 325 Mg Tab) 650 mg PO Q4H PRN PRN Reason: Headache or Minor Fever Stop: 02/05/21 16:35 Last Admin: 01/07/21 10:28 Dose: 650 mg Documented by: Al Hydrox/Mg Hydrox/Simethicone (Aluminum/Magnesium Susp 30 Ml Udc) 30 ml PO Q4H PRN PRN Reason: GI Upset Stop: 02/05/21 16:35 Bismuth Subsalicylate (Bismuth Subsalicylate Liqd 236 Ml) 15 ml PO PRN PRN PRN Reason: Loose Stool Stop: 02/05/21 16:35 Docusate Sodium (Docusate Sodium 100 Mg Cap) 100 mg PO BID TAMMY Stop: 02/07/21 12:59 Last Admin: 01/10/21 10:00 Dose: Not Given Documented by: Famotidine (Famotidine 20 Mg Tab) 20 mg PO DAILY PRN PRN Reason: HEART BURN Stop: 02/05/21 16:37 Gabapentin (Gabapentin 300 Mg Cap) 300 mg PO HS TAMMY Stop: 02/06/21 21:59 Last Admin: 01/09/21 21:24 Dose: 300 mg Documented by: Hydroxyzine HCl (Hydroxyzine Hcl 25 Mg Tab) 50 mg PO HSZ PRN PRN Reason: Insomnia Stop: 02/05/21 16:35 Last Admin: 01/07/21 00:07 Dose: 50 mg Documented by: Hydroxyzine HCl (Hydroxyzine Hcl 25 Mg Tab) 25 mg PO Q4H PRN PRN Reason: Anxiety Stop: 02/05/21 16:35 Lorazepam (Lorazepam 0.5 Mg Tab) 0.5 mg PO Q4 PRN PRN Reason: Anxiety Stop: 02/05/21 17:19 Last Admin: 01/06/21 18:32 Dose: 0.5 mg Documented by: Lorazepam (Lorazepam 0.5 Mg Tab) 0.5 mg PO BIDM TAMMY Stop: 02/08/21 17:44 Last Admin: 01/10/21 09:49 Dose: 0.5 mg Documented by: Magnesium Hydroxide (Magnesium Hydroxide Susp 30 Ml Udc) 30 ml PO DAILY PRN PRN Reason: Constipation Stop: 02/05/21 16:35 Mirtazapine (Mirtazapine Tab 15 Mg Tab) 15 mg PO HS TAMMY Stop: 02/07/21 21:59 Last Admin: 01/09/21 21:24 Dose: 15 mg Documented by: Pantoprazole Sodium (Pantoprazole 40 Mg Tab) 40 mg PO QAM TAMMY Stop: 02/06/21 08:59 Last Admin: 01/10/21 09:49 Dose: 40 mg Documented by: Polyethylene Glycol (Polyethylene (Miralax) 17 Gm Pack) 17 gm PO BID TAMMY Stop: 02/07/21 12:59 Last Admin: 01/10/21 10:00 Dose: Not Given Documented by: Sodium Chloride (Sodium Chloride 0.65% Na Soln 45 Ml ([place])) 1 - 2 sprays NA PRN PRN PRN Reason: Nasal Dryness/Congestion Stop: 02/05/21 16:35 Zolpidem Tartrate (Zolpidem Tartrate 10 Mg Tab) 10 mg PO Q24H TAMMY Stop: 02/08/21 23:29 Last Admin: 01/09/21 23:34 Dose: 10 mg Documented by: Post Discharge Appointments Primary Care Physician Name Of Family Doctor: Dr. Delores Hua Date of Appointment with PCP: 02/24/21 (1) Constipation Constipation type: unspecified constipation type Qualified Code(s): K59.00 - Constipation, unspecified
[2021-01-10] MEDS: GABAPENTIN 300 MG CAP PO SCH (21:05)
[2021-01-10] MEDS: MIRTAZAPINE TAB 15 MG TAB PO SCH (21:05)
[2021-01-10] MEDS: ZOLPIDEM TARTRATE 10 MG TAB PO SCH (23:58)
[2021-01-11] MEDS: PANTOprazole 40 MG TAB PO SCH (08:54)
[2021-01-11] MEDS: LORazepam 0.5 MG TAB PO SCH ×2 (08:54→18:57)
--- NOTE | 2021-01-11 14:49 | Psychiatric Progress Note ---
Date of Service January 11, 2021 Impression / Recommendations Impression 65 yo female with severe vegetative symptoms of depression with anxious distress as evidence by somatic preoccupation. Admit for inability to care for self. MNPR for severity of anxiety. 01/11/21: improving (1) Major depressive disorder with current active episode: (2) Constipation: 01/11/21: resume Miralax in am. Shift Ambien back to standard hs dosing. Consider titration of Remeron tomorrow. 01/10/21: scale back bowel regimen, continue BID Ativan, Remeron 15 mg hs, and standing Ambien. Patient less hopeless today but not eating consistently and remains unable to care for self outside of the hospital. 01/09/21: patient hesitant but ultimately agreed to some standing (temporary) doses of Ativan, continue Remeron trial and bowel regimen. 01/08/21: patient agreed to bowel regimen (miralax and colace), celiac antibody testing and vitamin levels given reports of restless legs/malabsorption. Risks/benefits/alternatives reviewed re: trial of Remeron 15 mg po qhs. Patient agreed to trial starting this hs. 01/07/21: The patient was admitted to the [facility] ([facility] mental health unit) on q15 min checks (behavioral with suicide precautions) for safety. The patient will participate in group, recreational, and milieu therapies and will be offered additional individual and family sessions as clinically appropriate. Will taper Lexapro to 5 mg for 2 days and then d/c as able to tolerate/worse on higher dose and completed full trial. Resume gabapentin as previously effective for hs anxiety/restless legs/cramps and likely to be beneficial for pain. Will hold starting a new antidepressant until constipation resolved, as already taken a laxative and a suppository with minimal benefit will order stat fleet enema. Inventory Assets Strengths: verbal, hx of employment, local family Needs: increase insight in depression and acceptance of outpatient services Risk Factors Assessment : Yes Health Problems: Yes Substance Use Disorders: No Previous Attempt: No Family History of Suicide: No Protective Factors Assessment : Yes Employed: Yes ([employer]) Stable Relationships: Yes Supportive Family: Yes Interval History Identifying Information 65 yo female admit 01/06/21 for inability to care for self due to depression and anxiety/somatic preoccupations. Chief Complaint "I'm just not going to get better fast enough". Review of Systems Sleep Information Total Hours of Sleep: 6.25 Sleep Comments: pt given lissaien per rn. pt on q-15 minute checks Meal Information Percent Meal Consumed - Breakfast: 100 Percent Meal Consumed - Lunch: 80 Percent Meal Consumed - Dinner: 100 Subjective Subjective Patient was seen & assessed and interval progress reviewed with nursing and social work. Patient reports ongoing passage of small amounts of soft stool. Sleep and appetite are improving. Ongoing guilt and cognitive distortions around her appearance and care for mother. She is aware mother fell and was in ICU and blames self for signing her out of skilled care previously. Attends select groups. Physical Exam Psychiatric Orientation: alert and oriented x 3 Apperance: appropriately dressed and appropriately groomed Eye Contact: good eye contact Motor Behavior: no abnormal motor movements Speech: normal rate/rhythm/volume of speech Affect: + depressed affect and + anxious affect Mood: + depressed mood Thought Process: + perseveration (somatic preoccupation) Thought Content: reality based without delusions Suicidal Thoughts: denies suicidal thoughts Homicidal Thoughts: denies homicidal thoughts Hallucinations: no auditory hallucinations and no visual hallucinations Cognition: attention grossly intact and language grossly intact Estimated Intelligence: consistent with education level Insight: + limited insight Judgement: + limited judgement Vital Signs (Past 24 Hours) Last Vital Signs Temp 36.8 C 01/11/21 06:00 Pulse 96 H 01/11/21 06:41 Resp 14 01/11/21 06:00 BP 112/77 01/11/21 06:41 Pulse Ox 97 01/06/21 17:50 [facility] & [facility] Current Inpatient Medications Current Inpatient Medications: Current Inpatient Medications Acetaminophen (Acetaminophen 325 Mg Tab) 650 mg PO Q4H PRN PRN Reason: Headache or Minor Fever Stop: 02/05/21 16:35 Last Admin: 01/07/21 10:28 Dose: 650 mg Documented by: Al Hydrox/Mg Hydrox/Simethicone (Aluminum/Magnesium Susp 30 Ml Udc) 30 ml PO Q4H PRN PRN Reason: GI Upset Stop: 02/05/21 16:35 Bismuth Subsalicylate (Bismuth Subsalicylate Liqd 236 Ml) 15 ml PO PRN PRN PRN Reason: Loose Stool Stop: 02/05/21 16:35 Docusate Sodium (Docusate Sodium 100 Mg Cap) 100 mg PO BID TAMMY Stop: 02/07/21 12:59 Last Admin: 01/10/21 10:00 Dose: Not Given Documented by: Famotidine (Famotidine 20 Mg Tab) 20 mg PO DAILY PRN PRN Reason: HEART BURN Stop: 02/05/21 16:37 Gabapentin (Gabapentin 300 Mg Cap) 300 mg PO HS TAMMY Stop: 02/06/21 21:59 Last Admin: 01/10/21 21:05 Dose: 300 mg Documented by: Hydroxyzine HCl (Hydroxyzine Hcl 25 Mg Tab) 50 mg PO HSZ PRN PRN Reason: Insomnia Stop: 02/05/21 16:35 Last Admin: 01/07/21 00:07 Dose: 50 mg Documented by: Hydroxyzine HCl (Hydroxyzine Hcl 25 Mg Tab) 25 mg PO Q4H PRN PRN Reason: Anxiety Stop: 02/05/21 16:35 Lorazepam (Lorazepam 0.5 Mg Tab) 0.5 mg PO Q4 PRN PRN Reason: Anxiety Stop: 02/05/21 17:19 Last Admin: 01/06/21 18:32 Dose: 0.5 mg Documented by: Lorazepam (Lorazepam 0.5 Mg Tab) 0.5 mg PO BIDM TAMMY Stop: 02/08/21 17:44 Last Admin: 01/11/21 08:54 Dose: 0.5 mg Documented by: Magnesium Hydroxide (Magnesium Hydroxide Susp 30 Ml Udc) 30 ml PO DAILY PRN PRN Reason: Constipation Stop: 02/05/21 16:35 Mirtazapine (Mirtazapine Tab 15 Mg Tab) 15 mg PO HS TAMMY Stop: 02/07/21 21:59 Last Admin: 01/10/21 21:05 Dose: 15 mg Documented by: Pantoprazole Sodium (Pantoprazole 40 Mg Tab) 40 mg PO QAM TAMMY Stop: 02/06/21 08:59 Last Admin: 01/11/21 08:54 Dose: 40 mg Documented by: Polyethylene Glycol (Polyethylene (Miralax) 17 Gm Pack) 17 gm PO BID TAMMY Stop: 02/07/21 12:59 Last Admin: 01/10/21 10:00 Dose: Not Given Documented by: Sodium Chloride (Sodium Chloride 0.65% Na Soln 45 Ml ([place])) 1 - 2 sprays NA PRN PRN PRN Reason: Nasal Dryness/Congestion Stop: 02/05/21 16:35 Zolpidem Tartrate (Zolpidem Tartrate 10 Mg Tab) 10 mg PO HS TAMMY Stop: 02/10/21 21:59 Post Discharge Appointments Primary Care Physician Name Of Family Doctor: Dr. Delores Hua Date of Appointment with PCP: 02/24/21 (1) Constipation Constipation type: unspecified constipation type Qualified Code(s): K59.00 - Constipation, unspecified
[2021-01-11] MEDS: GABAPENTIN 300 MG CAP PO SCH (21:12)
[2021-01-11] MEDS: MIRTAZAPINE TAB 15 MG TAB PO SCH (21:12)
[2021-01-11] MEDS: ZOLPIDEM TARTRATE 10 MG TAB PO SCH (21:13)
--- NOTE | 2021-01-12 06:46 | Psychiatric Progress Note ---
Date of Service January 12, 2021 Impression / Recommendations Impression 65 yo female with severe vegetative symptoms of depression with anxious distress as evidence by somatic preoccupation. Admit for inability to care for self. MNPR for severity of anxiety. 01/12/21--more isolative again today (1) Major depressive disorder with current active episode: (2) Constipation: 01/12/21: patient declines titration of Remeron to 30 mg, reviewed that Dr. Loving to assume care in am and can provide a second opinion. 01/11/21: resume Miralax in am. Shift Ambien back to standard hs dosing. Consider titration of Remeron tomorrow. 01/10/21: scale back bowel regimen, continue BID Ativan, Remeron 15 mg hs, and standing Ambien. Patient less hopeless today but not eating consistently and remains unable to care for self outside of the hospital. 01/09/21: patient hesitant but ultimately agreed to some standing (temporary) doses of Ativan, continue Remeron trial and bowel regimen. 01/08/21: patient agreed to bowel regimen (miralax and colace), celiac antibody testing and vitamin levels given reports of restless legs/malabsorption. Risks/benefits/alternatives reviewed re: trial of Remeron 15 mg po qhs. Patient agreed to trial starting this hs. 01/07/21: [facility] on q15 min checks (behavioral with suicide precautions) for safety. The patient will participate in group, recreational, and milieu therapies and will be offered additional individual and family sessions as clinically appropriate. Will taper Lexapro to 5 mg for 2 days and then d/c as able to tolerate/worse on higher dose and completed full trial. Resume gabapentin as previously effective for hs anxiety/restless legs/cramps and likely to be beneficial for pain. Will hold starting a new antidepressant until constipation resolved, as already taken a laxative and a suppository with minimal benefit will order stat fleet enema. Inventory Assets Strengths: verbal, hx of employment, local family Needs: increase insight in depression and acceptance of outpatient services Risk Factors Assessment : Yes Health Problems: Yes Substance Use Disorders: No Previous Attempt: No Family History of Suicide: No Protective Factors Assessment : Yes Employed: Yes ([employer]) Stable Relationships: Yes Supportive Family: Yes Interval History Identifying Information 65 yo female admit 01/06/21 for inability to care for self due to depression and anxiety/somatic preoccupations. Chief Complaint "I'm not much better, I don't know what to say". Review of Systems Sleep Information Total Hours of Sleep: 7 Sleep Comments: pt given lissaien per rn. pt on q-15 minute checks Meal Information Percent Meal Consumed - Breakfast: 100 Percent Meal Consumed - Lunch: 80 Percent Meal Consumed - Dinner: 80 Subjective Subjective Patient was seen & assessed and interval progress reviewed with nursing and social work. Isolative to room again last night. Remains focussed on not having full bowel movements. Last pm yesterday early evening--small/soft. No incontinence or urgency. Physical Exam Psychiatric Orientation: alert and oriented x 3 Apperance: appropriately dressed and appropriately groomed Eye Contact: good eye contact Motor Behavior: no abnormal motor movements Speech: normal rate/rhythm/volume of speech Affect: + depressed affect and + anxious affect Mood: + depressed mood Thought Process: + perseveration (somatic preoccupation) Thought Content: reality based without delusions Suicidal Thoughts: denies suicidal thoughts Homicidal Thoughts: denies homicidal thoughts Hallucinations: no auditory hallucinations and no visual hallucinations Cognition: attention grossly intact and language grossly intact Estimated Intelligence: consistent with education level Insight: + limited insight Judgement: + limited judgement Vital Signs (Past 24 Hours) Last Vital Signs Temp 36.6 C 01/12/21 06:43 Pulse 74 01/12/21 06:43 Resp 16 01/12/21 06:43 BP 91/60 L 01/12/21 06:43 Pulse Ox 97 01/06/21 17:50 Results & Data ([facility]) Current Inpatient Medications Current Inpatient Medications: Current Inpatient Medications Acetaminophen (Acetaminophen 325 Mg Tab) 650 mg PO Q4H PRN PRN Reason: Headache or Minor Fever Stop: 02/05/21 16:35 Last Admin: 01/07/21 10:28 Dose: 650 mg Documented by: Al Hydrox/Mg Hydrox/Simethicone (Aluminum/Magnesium Susp 30 Ml Udc) 30 ml PO Q4H PRN PRN Reason: GI Upset Stop: 02/05/21 16:35 Bismuth Subsalicylate (Bismuth Subsalicylate Liqd 236 Ml) 15 ml PO PRN PRN PRN Reason: Loose Stool Stop: 02/05/21 16:35 Docusate Sodium (Docusate Sodium 100 Mg Cap) 100 mg PO BID TAMMY Stop: 02/07/21 12:59 Last Admin: 01/10/21 10:00 Dose: Not Given Documented by: Famotidine (Famotidine 20 Mg Tab) 20 mg PO DAILY PRN PRN Reason: HEART BURN Stop: 02/05/21 16:37 Gabapentin (Gabapentin 300 Mg Cap) 300 mg PO HS TAMMY Stop: 02/06/21 21:59 Last Admin: 01/11/21 21:12 Dose: 300 mg Documented by: Hydroxyzine HCl (Hydroxyzine Hcl 25 Mg Tab) 50 mg PO HSZ PRN PRN Reason: Insomnia Stop: 02/05/21 16:35 Last Admin: 01/07/21 00:07 Dose: 50 mg Documented by: Hydroxyzine HCl (Hydroxyzine Hcl 25 Mg Tab) 25 mg PO Q4H PRN PRN Reason: Anxiety Stop: 02/05/21 16:35 Lorazepam (Lorazepam 0.5 Mg Tab) 0.5 mg PO Q4 PRN PRN Reason: Anxiety Stop: 02/05/21 17:19 Last Admin: 01/06/21 18:32 Dose: 0.5 mg Documented by: Lorazepam (Lorazepam 0.5 Mg Tab) 0.5 mg PO BIDM TAMMY Stop: 02/08/21 17:44 Last Admin: 01/11/21 18:57 Dose: 0.5 mg Documented by: Magnesium Hydroxide (Magnesium Hydroxide Susp 30 Ml Udc) 30 ml PO DAILY PRN PRN Reason: Constipation Stop: 02/05/21 16:35 Mirtazapine (Mirtazapine Tab 15 Mg Tab) 15 mg PO HS [facility] Stop: 02/07/21 21:59 Last Admin: 01/11/21 21:12 Dose: 15 mg Documented by: Pantoprazole Sodium (Pantoprazole 40 Mg Tab) 40 mg PO QAM [facility] Stop: 02/06/21 08:59 Last Admin: 01/11/21 08:54 Dose: 40 mg Documented by: Polyethylene Glycol (Polyethylene (Miralax) 17 Gm Pack) 17 gm PO QAM [facility] Stop: 02/11/21 08:59 Sodium Chloride (Sodium Chloride 0.65% Na Soln 45 Ml ([place])) 1 - 2 sprays NA PRN PRN PRN Reason: Nasal Dryness/Congestion Stop: 02/05/21 16:35 Zolpidem Tartrate (Zolpidem Tartrate 10 Mg Tab) 10 mg PO HS TAMMY Stop: 02/10/21 21:59 Last Admin: 01/11/21 21:13 Dose: 10 mg Documented by: Post Discharge Appointments Primary Care Physician Name Of Family Doctor: Dr. Delores Hua Date of Appointment with PCP: 02/24/21 (1) Constipation Constipation type: unspecified constipation type Qualified Code(s): K59.00 - Constipation, unspecified
[2021-01-12] MEDS ORDERED: POLYETHYLENE (MIRALAX) 17 GM PACK PO SCH (09:00)
[2021-01-12] MEDS: LORazepam 0.5 MG TAB PO SCH ×2 (09:01→17:30)
[2021-01-12] MEDS: PANTOprazole 40 MG TAB PO SCH (09:01)
[2021-01-12] MEDS: ZOLPIDEM TARTRATE 10 MG TAB PO SCH (21:46)
[2021-01-12] MEDS: GABAPENTIN 300 MG CAP PO SCH (21:47)
[2021-01-12] MEDS: MIRTAZAPINE TAB 15 MG TAB PO SCH (21:47)
[2021-01-13] MEDS: LORazepam 0.5 MG TAB PO SCH ×2 (08:31→17:39)
[2021-01-13] MEDS: PANTOprazole 40 MG TAB PO SCH (08:31)
[2021-01-13] MEDS: DOCUSATE SODIUM 100 MG CAP PO SCH ×2 (13:11→21:48)
--- NOTE | 2021-01-13 13:50 | Psychiatric Progress Note ---
Date of Service January 13, 2021 Impression / Recommendations Impression 65 yo female with severe vegetative symptoms of depression with anxious distress as evidence by somatic preoccupation. Admit for inability to care for self. MNPR for severity of anxiety. 01/12/21--more isolative again today 1patient reporting good sleep and good appetite, but continues with low energy/motivation. (1) Major depressive disorder with current active episode: (2) Constipation: 01/13/2021Will increase dose of Remeron to 30 mg p.o. nightly. 01/12/21: patient declines titration of Remeron to 30 mg, reviewed that Dr. Loving to assume care in am and can provide a second opinion. 01/11/21: resume Miralax in am. Shift Ambien back to standard hs dosing. Consider titration of Remeron tomorrow. 01/10/21: scale back bowel regimen, continue BID Ativan, Remeron 15 mg hs, and standing Ambien. Patient less hopeless today but not eating consistently and remains unable to care for self outside of the hospital. 01/09/21: patient hesitant but ultimately agreed to some standing (temporary) doses of Ativan, continue Remeron trial and bowel regimen. 01/08/21: patient agreed to bowel regimen (miralax and colace), celiac antibody testing and vitamin levels given reports of restless legs/malabsorption. Risks/benefits/alternatives reviewed re: trial of Remeron 15 mg po qhs. Patient agreed to trial starting this hs. 01/07/21: The patient was admitted to the [facility] ([facility] mental health unit) on q15 min checks (behavioral with suicide precautions) for safety. The patient will participate in group, recreational, and milieu therapies and will be offered additional individual and family sessions as clinically appropriate. Will taper Lexapro to 5 mg for 2 days and then d/c as able to tolerate/worse on higher dose and completed full trial. Resume gabapentin as previously effective for hs anxiety/restless legs/cramps and likely to be beneficial for pain. Will hold starting a new antidepressant until constipation resolved, as already taken a laxative and a suppository with minimal benefit will order stat fleet enema. Inventory Assets Strengths: verbal, hx of employment, local family Needs: increase insight in depression and acceptance of outpatient services Risk Factors Assessment : Yes Health Problems: Yes Substance Use Disorders: No Previous Attempt: No Family History of Suicide: No Protective Factors Assessment : Yes Employed: Yes ([employer]) Stable Relationships: Yes Supportive Family: Yes Interval History Identifying Information 65 yo female admit 01/06/21 for inability to care for self due to depression and anxiety/somatic preoccupations. Chief Complaint "Do you think I need a double dose". Review of Systems Sleep Information Total Hours of Sleep: 7 Sleep Comments: pt given ambien per rn. pt on q-15 minute checks Meal Information Percent Meal Consumed - Breakfast: 80 Percent Meal Consumed - Lunch: 100 Percent Meal Consumed - Dinner: 80 Subjective Subjective Patient was seen & assessed and interval progress reviewed with treatment team nursing and social work Patient continues to report low energy and motivation. She does deny any suicidal ideation. She is reporting a strong appetite as well as a good night of sleep with the current regimen consisting of Ambien. Patient reports contrary feelings of anxiety as well as tired with low motivation. She continues to be hesitant with medications, although does agree to increase her dose of Remeron to a full dose of 30 mg. She denies any suicidal thoughts currently. Patient makes frequent contradictory statements such as I do not know if I will ever get better while at this time time saying that she would like to leave the hospital soon as possible. Patient was informed as to the length of the time of action of psychiatric medications and introduced to the idea of continuing treatment on outpatient basis. She was agreeable to continuing care on an outpatient basis if she feels okay for the next day or so. Family meeting will be planned for Wednesday Patient still reporting difficulty with her bowels, will resume Colace. I spent 30 minutes with the patient, 50% of which was dedicated to counselling and coordination of care. Physical Exam Psychiatric Orientation: alert and oriented x 3 Apperance: appropriately dressed and appropriately groomed Eye Contact: good eye contact Motor Behavior: no abnormal motor movements Speech: normal rate/rhythm/volume of speech Affect: + depressed affect and + anxious affect Mood: + depressed mood Thought Process: + perseveration (somatic preoccupation) Thought Content: reality based without delusions Suicidal Thoughts: denies suicidal thoughts Homicidal Thoughts: denies homicidal thoughts Hallucinations: no auditory hallucinations and no visual hallucinations Cognition: attention grossly intact and language grossly intact Estimated Intelligence: consistent with education level Insight: + limited insight Judgement: + limited judgement Vital Signs (Past 24 Hours) Last Vital Signs Temp 36.7 C 01/13/21 07:05 Pulse 101 H 01/13/21 07:05 Resp 16 01/13/21 07:05 BP 106/72 01/13/21 07:05 Pulse Ox 97 01/06/21 17:50 Results & Data ([facility]) Current Inpatient Medications Current Inpatient Medications: Current Inpatient Medications Acetaminophen (Acetaminophen 325 Mg Tab) 650 mg PO Q4H PRN PRN Reason: Headache or Minor Fever Stop: 02/05/21 16:35 Last Admin: 01/07/21 10:28 Dose: 650 mg Documented by: Al Hydrox/Mg Hydrox/Simethicone (Aluminum/Magnesium Susp 30 Ml Udc) 30 ml PO Q4H PRN PRN Reason: GI Upset Stop: 02/05/21 16:35 Bismuth Subsalicylate (Bismuth Subsalicylate Liqd 236 Ml) 15 ml PO PRN PRN PRN Reason: Loose Stool Stop: 02/05/21 16:35 Docusate Sodium (Docusate Sodium 100 Mg Cap) 100 mg PO BID TAMMY Stop: 02/12/21 12:14 Last Admin: 01/13/21 13:11 Dose: 100 mg Documented by: Famotidine (Famotidine 20 Mg Tab) 20 mg PO DAILY PRN PRN Reason: HEART BURN Stop: 02/05/21 16:37 Gabapentin (Gabapentin 300 Mg Cap) 300 mg PO HS TAMMY Stop: 02/06/21 21:59 Last Admin: 01/12/21 21:47 Dose: 300 mg Documented by: Hydroxyzine HCl (Hydroxyzine Hcl 25 Mg Tab) 50 mg PO HSZ PRN PRN Reason: Insomnia Stop: 02/05/21 16:35 Last Admin: 01/07/21 00:07 Dose: 50 mg Documented by: Hydroxyzine HCl (Hydroxyzine Hcl 25 Mg Tab) 25 mg PO Q4H PRN PRN Reason: Anxiety Stop: 02/05/21 16:35 Lorazepam (Lorazepam 0.5 Mg Tab) 0.5 mg PO Q4 PRN PRN Reason: Anxiety Stop: 02/05/21 17:19 Last Admin: 01/06/21 18:32 Dose: 0.5 mg Documented by: Lorazepam (Lorazepam 0.5 Mg Tab) 0.5 mg PO BIDM TAMMY Stop: 02/08/21 17:44 Last Admin: 01/13/21 08:31 Dose: 0.5 mg Documented by: Magnesium Hydroxide (Magnesium Hydroxide Susp 30 Ml Udc) 30 ml PO DAILY PRN PRN Reason: Constipation Stop: 02/05/21 16:35 Mirtazapine (Mirtazapine Tab 15 Mg Tab) 30 mg PO HS TAMMY Stop: 02/12/21 21:59 Pantoprazole Sodium (Pantoprazole 40 Mg Tab) 40 mg PO QAM TAMMY Stop: 02/06/21 08:59 Last Admin: 01/13/21 08:31 Dose: 40 mg Documented by: Polyethylene Glycol (Polyethylene (Miralax) 17 Gm Pack) 17 gm PO QAM [facility] Stop: 02/11/21 08:59 Sodium Chloride (Sodium Chloride 0.65% Na Soln 45 Ml ([place])) 1 - 2 sprays NA PRN PRN PRN Reason: Nasal Dryness/Congestion Stop: 02/05/21 16:35 Zolpidem Tartrate (Zolpidem Tartrate 10 Mg Tab) 10 mg PO HS TAMMY Stop: 02/10/21 21:59 Last Admin: 01/12/21 21:46 Dose: 10 mg Documented by: Post Discharge Appointments Primary Care Physician Name Of Family Doctor: Dr. Delores Hua Date of Appointment with PCP: 02/24/21 (1) Constipation Constipation type: unspecified constipation type Qualified Code(s): K59.00 - Constipation, unspecified
[2021-01-13] MEDS: MIRTAZAPINE TAB 15 MG TAB PO SCH (21:48)
[2021-01-13] MEDS: ZOLPIDEM TARTRATE 10 MG TAB PO SCH (21:48)
[2021-01-13] MEDS: GABAPENTIN 300 MG CAP PO SCH (21:48)
[2021-01-14] MEDS: DOCUSATE SODIUM 100 MG CAP PO SCH ×2 (08:52→21:36)
[2021-01-14] MEDS: LORazepam 0.5 MG TAB PO SCH ×2 (08:52→17:47)
[2021-01-14] MEDS: PANTOprazole 40 MG TAB PO SCH (08:52)
[2021-01-14 15:00] LABS: IgA Serum 467 mg/dL (70-320); Tis Trans IgA 1 U/mL; Vitamin D 1,25 33 pg/mL (18-72); Vitamin D3,1,25 33 pg/mL
--- NOTE | 2021-01-14 15:19 | Psychiatric Progress Note ---
Date of Service January 14, 2021 Impression / Recommendations Impression 65 yo female with severe vegetative symptoms of depression with anxious distress as evidence by somatic preoccupation. Admit for inability to care for self. MNPR for severity of anxiety. 01/12/21--more isolative again today 1patient reporting good sleep and good appetite, but continues with low energy/motivation. (1) Major depressive disorder with current active episode: (2) Constipation: 01/14/2021We will continue Remeron at 30 mg p.o. nightly. We will continue with Colace,Ambien and Ativan as needed. 01/13/2021Will increase dose of Remeron to 30 mg p.o. nightly. 01/12/21: patient declines titration of Remeron to 30 mg, reviewed that Dr. Loving to assume care in am and can provide a second opinion. 01/11/21: resume Miralax in am. Shift Ambien back to standard hs dosing. Consider titration of Remeron tomorrow. 01/10/21: scale back bowel regimen, continue BID Ativan, Remeron 15 mg hs, and standing Ambien. Patient less hopeless today but not eating consistently and remains unable to care for self outside of the hospital. 01/09/21: patient hesitant but ultimately agreed to some standing (temporary) doses of Ativan, continue Remeron trial and bowel regimen. 01/08/21: patient agreed to bowel regimen (miralax and colace), celiac antibody testing and vitamin levels given reports of restless legs/malabsorption. Risks/benefits/alternatives reviewed re: trial of Remeron 15 mg po qhs. Patient agreed to trial starting this hs. 01/07/21: The patient was admitted to the [facility] ([facility] mental health unit) on q15 min checks (behavioral with suicide precautions) for safety. The patient will participate in group, recreational, and milieu therapies and will be offered additional individual and family sessions as clinically appropriate. Will taper Lexapro to 5 mg for 2 days and then d/c as able to tolerate/worse on higher dose and completed full trial. Resume gabapentin as previously effective for hs anxiety/restless legs/cramps and likely to be beneficial for pain. Will hold starting a new antidepressant until constipation resolved, as already taken a laxative and a suppository with minimal benefit will order stat fleet enema. Inventory Assets Strengths: verbal, hx of employment, local family Needs: increase insight in depression and acceptance of outpatient services Risk Factors Assessment : Yes Health Problems: Yes Substance Use Disorders: No Previous Attempt: No Family History of Suicide: No Protective Factors Assessment : Yes Employed: Yes ([employer]) Stable Relationships: Yes Supportive Family: Yes Interval History Identifying Information 65 yo female admit 01/06/21 for inability to care for self due to depression and anxiety/somatic preoccupations. Chief Complaint "I am still tired but I am ready to leave". Review of Systems Sleep Information Total Hours of Sleep: 7 Sleep Comments: pt given ambien per rn. pt on q-15 minute checks Meal Information Percent Meal Consumed - Breakfast: 100 Percent Meal Consumed - Lunch: 60 Percent Meal Consumed - Dinner: 100 Subjective Subjective Patient was seen & assessed and interval progress reviewed with treatment team nursing and social work Patient continues to report Low energy levels and low motivation, and continues to deny any suicidal ideation.She denies any adverse effects of the increased dose of mirtazapine, and expresses an understanding of the time course of her psychiatric medications to work properly. She is requesting to leave the psychiatric unit as she feels that she has attained which she can from here as well as feels that she can be safe at home.She was informed that we will start discharge planning including a family meeting for tomorrow. No side effects of medications reported or observed. Patient is eating and sleeping well. I spent 30 minutes with the patient, 50% of which was dedicated to counselling and coordination of care. Physical Exam Psychiatric Orientation: alert and oriented x 3 Apperance: appropriately dressed and appropriately groomed Eye Contact: good eye contact Motor Behavior: no abnormal motor movements Speech: normal rate/rhythm/volume of speech Affect: + depressed affect and + anxious affect Mood: + depressed mood Thought Process: + perseveration (somatic preoccupation) Thought Content: reality based without delusions Suicidal Thoughts: denies suicidal thoughts Homicidal Thoughts: denies homicidal thoughts Hallucinations: no auditory hallucinations and no visual hallucinations Cognition: attention grossly intact and language grossly intact Estimated Intelligence: consistent with education level Insight: + limited insight Judgement: + limited judgement Vital Signs (Past 24 Hours) Last Vital Signs Temp 36.8 C 01/14/21 06:47 Pulse 106 H 09/21/21 06:47 Resp 16 01/14/21 06:47 BP 115/79 01/14/21 06:47 Pulse Ox 97 01/06/21 17:50 Results & Data ([facility]) Laboratory Results Laboratory Results - last 24 hr 01/08/21 13:52 Vit D 1,25-Dihyd Total 33 1,25 Dihydroxy Vit D2 <8 1,25 Dihydroxy Vit D3 33 IgA 467 H Tiss Transglutamin IgA 1 Celiac Disease Interp SEE NOTE Current Inpatient Medications Current Inpatient Medications: Current Inpatient Medications Acetaminophen (Acetaminophen 325 Mg Tab) 650 mg PO Q4H PRN PRN Reason: Headache or Minor Fever Stop: 02/05/21 16:35 Last Admin: 01/07/21 10:28 Dose: 650 mg Documented by: Al Hydrox/Mg Hydrox/Simethicone (Aluminum/Magnesium Susp 30 Ml Udc) 30 ml PO Q4H PRN PRN Reason: GI Upset Stop: 02/05/21 16:35 Bismuth Subsalicylate (Bismuth Subsalicylate Liqd 236 Ml) 15 ml PO PRN PRN PRN Reason: Loose Stool Stop: 02/05/21 16:35 Docusate Sodium (Docusate Sodium 100 Mg Cap) 100 mg PO BID TAMMY Stop: 02/12/21 12:14 Last Admin: 01/14/21 08:52 Dose: 100 mg Documented by: Famotidine (Famotidine 20 Mg Tab) 20 mg PO DAILY PRN PRN Reason: HEART BURN Stop: 02/05/21 16:37 Gabapentin (Gabapentin 300 Mg Cap) 300 mg PO HS TAMMY Stop: 02/06/21 21:59 Last Admin: 01/13/21 21:48 Dose: 300 mg Documented by: Hydroxyzine HCl (Hydroxyzine Hcl 25 Mg Tab) 50 mg PO HSZ PRN PRN Reason: Insomnia Stop: 02/05/21 16:35 Last Admin: 01/07/21 00:07 Dose: 50 mg Documented by: Hydroxyzine HCl (Hydroxyzine Hcl 25 Mg Tab) 25 mg PO Q4H PRN PRN Reason: Anxiety Stop: 02/05/21 16:35 Lorazepam (Lorazepam 0.5 Mg Tab) 0.5 mg PO Q4 PRN PRN Reason: Anxiety Stop: 02/05/21 17:19 Last Admin: 01/06/21 18:32 Dose: 0.5 mg Documented by: Lorazepam (Lorazepam 0.5 Mg Tab) 0.5 mg PO BIDM TAMMY Stop: 02/08/21 17:44 Last Admin: 01/14/21 08:52 Dose: 0.5 mg Documented by: Magnesium Hydroxide (Magnesium Hydroxide Susp 30 Ml Udc) 30 ml PO DAILY PRN PRN Reason: Constipation Stop: 02/05/21 16:35 Mirtazapine (Mirtazapine Tab 15 Mg Tab) 30 mg PO HS TAMMY Stop: 02/12/21 21:59 Last Admin: 01/13/21 21:48 Dose: 30 mg Documented by: Pantoprazole Sodium (Pantoprazole 40 Mg Tab) 40 mg PO QAM TAMMY Stop: 02/06/21 08:59 Last Admin: 01/14/21 08:52 Dose: 40 mg Documented by: Polyethylene Glycol (Polyethylene (Miralax) 17 Gm Pack) 17 gm PO QAM TAMMY Stop: 02/11/21 08:59 Sodium Chloride (Sodium Chloride 0.65% Na Soln 45 Ml ([place])) 1 - 2 sprays NA PRN PRN PRN Reason: Nasal Dryness/Congestion Stop: 02/05/21 16:35 Zolpidem Tartrate (Zolpidem Tartrate 10 Mg Tab) 10 mg PO HS TAMMY Stop: 02/10/21 21:59 Last Admin: 01/13/21 21:48 Dose: 10 mg Documented by: Mental Health & Subst Abuse Tx Therapist Name of Therapist: [facility] Post Discharge Appointments Primary Care Physician Name Of Family Doctor: Dr. Delores Hua Date of Appointment with PCP: 02/24/21 (1) Constipation Constipation type: unspecified constipation type Qualified Code(s): K59.00 - Constipation, unspecified
[2021-01-14] MEDS: GABAPENTIN 300 MG CAP PO SCH (21:36)
[2021-01-14] MEDS: MIRTAZAPINE TAB 15 MG TAB PO SCH (21:36)
[2021-01-14] MEDS: ZOLPIDEM TARTRATE 10 MG TAB PO SCH (21:36)
[2021-01-15 06:47] VITALS: TEMP 98.2
[2021-01-15] MEDS: DOCUSATE SODIUM 100 MG CAP PO SCH (08:57)
[2021-01-15] MEDS: PANTOprazole 40 MG TAB PO SCH (08:57)
[2021-01-15] MEDS: LORazepam 0.5 MG TAB PO SCH (08:57)
[2021-01-15 11:44] VITALS: BP 115/79; PULSE 86
--- NOTE | 2021-01-15 13:40 | Discharge Summary ---
Date of Service January 15, 2021 History of Present Illness Radha reports being in pain leading up to her back surgery in August and having difficulty with energy, sleep, mood following the procedure. She attributes onset of the issues to constipation from opiate pain medication (which she took sparingly as prescribed). She feels as though even when she discontinued regular use of these medications that the constipation did not resolve and limited her mobility. 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 Other stressors include her having his own series of surgeries and her mother's decline in health and ultimately senior care placement. Bed has become "my safe place" and she has extreme anxiety at doing even minor self care tasks. She gets upset when her encourages her to "do something". She feels her skin is pale and dry and notes muscles feels "limp" and reports losing 15 lbs. She has no appetite and feels worse after she eats. She feels hopeless and guilty but denies any thoughts to end her life. She notes some anxiety at baseline but nothing like the current preoccupation with her health and bowels. She reports that antidepressant medication has not been helpful and in fact she tends to feel worse at higher doses. She reports inability to sleep without Ambien which has been a longstanding medication for her. Physical Exam Psychiatric Orientation: alert and oriented x 3 Apperance: appropriately dressed and appropriately groomed Eye Contact: good eye contact Motor Behavior: no abnormal motor movements Speech: normal rate/rhythm/volume of speech Affect: + depressed affect and + anxious affect Mood: + depressed mood Thought Process: + perseveration (somatic preoccupation) Thought Content: reality based without delusions Suicidal Thoughts: denies suicidal thoughts Homicidal Thoughts: denies homicidal thoughts Hallucinations: no auditory hallucinations and no visual hallucinations Cognition: attention grossly intact and language grossly intact Estimated Intelligence: consistent with education level Insight: + limited insight Judgement: + limited judgement Vital Signs (Past 24 Hours) Last Vital Signs Temp 36.8 C 01/15/21 11:41 Pulse 86 01/15/21 11:41 Resp 16 01/15/21 11:41 BP 115/79 01/15/21 11:41 Pulse Ox 97 01/15/21 11:41 Principal Diagnosis Major depressive Disorder Psychiatric Data See daily stay summary. In short, safety was maintained, and the patient was cooperative with care. Medication changes included discontinuing Lexapro and Xanax and replacing with Remeron and Ativan and they tolerated this well. A family session was held and safety plan was completed prior to discharge. Day of Discharge Assessment Today the patient voices readiness for discharge. They note improvement in mood and deny thoughts to harm self or others. Thoughts remain organized and they are improved from admission. There is no evidence of psychosis. They agree to take medications as prescribed and keep follow-up appointments. They are stable for discharge to outpatient level of care. Transition of Care Transition Of Care Record: was reviewed with the patient Advance Directives Advance Directives Information Provided: Yes Advance Directives: No Mental Health Advance Directive: No Advance Directives on File: No Living Will: No Power of Leather Sponger: No Advance Directives Reason:: Declines as Mental Health Visit. Risk Factors Assessment : Yes Health Problems: Yes Substance Use Disorders: No Previous Attempt: No Family History of Suicide: No Protective Factors Assessment : Yes Employed: Yes ([employer]) Stable Relationships: Yes Supportive Family: Yes Tobacco Cessation at Discharge Tobacco Cessation Medication Prescribed at Discharge: Not Applicable/Non-Smoker Discharge Data Lab Results 01/06/21 01/06/21 01/06/21 13:26 13:26 13:52 WBC 5.34 RBC 4.44 Hgb 13.1 Hct 39.8 MCV 89.6 MCH 29.5 MCHC 32.9 RDW Std Deviation 42.6 RDW Coeff of Terry 12.9 Plt Count 257 MPV 9.4 Immature Gran % (Auto) 0.2 Neut % (Auto) 66.3 Lymph % (Auto) 23.2 Elbert % (Auto) 9.4 Eos % (Auto) 0.7 Baso % (Auto) 0.2 Neut # (Auto) 3.54 Lymph # (Auto) 1.24 Elbert # (Auto) 0.50 Eos # (Auto) 0.04 Baso # (Auto) 0.01 Immature Gran # (Auto) 0.01 Sodium Potassium Chloride Carbon Dioxide Anion Gap BUN Creatinine Est Cr Clr Drug Dosing Est GFR ( Amer) Est GFR (Non-Af Amer) BUN/Creatinine Ratio Glucose Calcium Iron TIBC Ferritin Total Bilirubin AST ALT Alkaline Phosphatase Total Protein Albumin Globulin Albumin/Globulin Ratio Vitamin B12 Vit D 1,25-Dihyd Total 1,25 Dihydroxy Vit D2 1,25 Dihydroxy Vit D3 Folate TSH Urine Color Yellow Urine Appearance Clear Urine pH 8.5 H Ur Specific [place] 1.005 Urine Protein Negative Urine Glucose (UA) Negative Urine Ketones Negative Urine Blood Negative Urine Nitrite Negative Urine Bilirubin Negative Urine Urobilinogen Negative Ur Leukocyte Esterase Negative Salicylates Urine Opiates Screen Neg Ur Methadone, Qual Neg Acetaminophen Urine Barbiturates Neg Ur Phencyclidine (PCP) Neg U Amphetamin/Meth Scrn Neg MDMA (Ecstasy) Screen Neg U Benzodiazepines Scrn Neg Ur Cocaine Metabolite Neg U Marijuana (THC) Screen Neg Ethyl Alcohol mg/dL IgA Tiss Transglutamin IgA Celiac Disease Interp COVID-19 Eval Order SARS-CoV-2, RNA, NAAT 01/06/21 01/06/21 01/06/21 13:52 13:52 13:52 WBC RBC Hgb Hct MCV MCH MCHC RDW Std Deviation RDW Coeff of Terry Plt Count MPV Immature Gran % (Auto) Neut % (Auto) Lymph % (Auto) Elbert % (Auto) Eos % (Auto) Baso % (Auto) Neut # (Auto) Lymph # (Auto) Elbert # (Auto) Eos # (Auto) Baso # (Auto) Immature Gran # (Auto) Sodium 141 Potassium 3.5 Chloride 107 Carbon Dioxide 29 Anion Gap 5.0 BUN 5 L Creatinine 0.77 Est Cr Clr Drug Dosing Not Reportable Est GFR ( Amer) 95.2 Est GFR (Non-Af Amer) 82.2 BUN/Creatinine Ratio 6.3 L Glucose 99 Calcium 8.9 Iron TIBC Ferritin Total Bilirubin 0.4 AST 17 ALT 17 Alkaline Phosphatase 91 Total Protein 7.1 Albumin 3.6 Globulin 3.5 Albumin/Globulin Ratio 1.0 Vitamin B12 Vit D 1,25-Dihyd Total 1,25 Dihydroxy Vit D2 1,25 Dihydroxy Vit D3 Folate TSH 1.650 Urine Color Urine Appearance Urine pH Ur Specific [place] Urine Protein Urine Glucose (UA) Urine Ketones Urine Blood Urine Nitrite Urine Bilirubin Urine Urobilinogen Ur Leukocyte Esterase Salicylates < 1.7 L Urine Opiates Screen Ur Methadone, Qual Acetaminophen < 2 L Urine Barbiturates Ur Phencyclidine (PCP) U Amphetamin/Meth Scrn MDMA (Ecstasy) Screen U Benzodiazepines Scrn Ur Cocaine Metabolite U Marijuana (THC) Screen Ethyl Alcohol mg/dL < 3.0 IgA Tiss Transglutamin IgA Celiac Disease Interp COVID-19 Eval Order SARS-CoV-2, RNA, NAAT 01/06/21 01/06/21 01/08/21 13:58 13:58 13:52 WBC RBC Hgb Hct MCV MCH MCHC RDW Std Deviation RDW Coeff of Terry Plt Count MPV Immature Gran % (Auto) Neut % (Auto) Lymph % (Auto) Elbert % (Auto) Eos % (Auto) Baso % (Auto) Neut # (Auto) Lymph # (Auto) Elbert # (Auto) Eos # (Auto) Baso # (Auto) Immature Gran # (Auto) Sodium Potassium Chloride Carbon Dioxide Anion Gap BUN Creatinine Est Cr Clr Drug Dosing Est GFR ( Amer) Est GFR (Non-Af Amer) BUN/Creatinine Ratio Glucose Calcium Iron TIBC Ferritin Total Bilirubin AST ALT Alkaline Phosphatase Total Protein Albumin Globulin Albumin/Globulin Ratio Vitamin B12 248 Vit D 1,25-Dihyd Total 1,25 Dihydroxy Vit D2 1,25 Dihydroxy Vit D3 Folate 16.10 TSH Urine Color Urine Appearance Urine pH Ur Specific [place] Urine Protein Urine Glucose (UA) Urine Ketones Urine Blood Urine Nitrite Urine Bilirubin Urine Urobilinogen Ur Leukocyte Esterase Salicylates Urine Opiates Screen Ur Methadone, Qual Acetaminophen Urine Barbiturates Ur Phencyclidine (PCP) U Amphetamin/Meth Scrn MDMA (Ecstasy) Screen U Benzodiazepines Scrn Ur Cocaine Metabolite U Marijuana (THC) Screen Ethyl Alcohol mg/dL IgA Tiss Transglutamin IgA Celiac Disease Interp COVID-19 Eval [facility] SARS-CoV-2, RNA, NAAT NEGATIVE 01/08/21 01/08/21 13:52 13:52 WBC RBC Hgb Hct MCV MCH MCHC RDW Std Deviation RDW Coeff of Terry Plt Count MPV Immature Gran % (Auto) Neut % (Auto) Lymph % (Auto) Elbert % (Auto) Eos % (Auto) Baso % (Auto) Neut # (Auto) Lymph # (Auto) Elbert # (Auto) Eos # (Auto) Baso # (Auto) Immature Gran # (Auto) Sodium Potassium Chloride Carbon Dioxide Anion Gap BUN Creatinine Est Cr Clr Drug Dosing Est GFR ( Amer) Est GFR (Non-Af Amer) BUN/Creatinine Ratio Glucose Calcium Iron 102 TIBC 395 Ferritin 16.5 Total Bilirubin AST ALT Alkaline Phosphatase Total Protein Albumin Globulin Albumin/Globulin Ratio Vitamin B12 Vit D 1,25-Dihyd Total 33 1,25 Dihydroxy Vit D2 <8 1,25 Dihydroxy Vit D3 33 Folate TSH Urine Color Urine Appearance Urine pH Ur Specific [place] Urine Protein Urine Glucose (UA) Urine Ketones Urine Blood Urine Nitrite Urine Bilirubin Urine Urobilinogen Ur Leukocyte Esterase Salicylates Urine Opiates Screen Ur Methadone, Qual Acetaminophen Urine Barbiturates Ur Phencyclidine (PCP) U Amphetamin/Meth Scrn MDMA (Ecstasy) Screen U Benzodiazepines Scrn Ur Cocaine Metabolite U Marijuana (THC) Screen Ethyl Alcohol mg/dL IgA 467 H Tiss Transglutamin IgA 1 Celiac Disease Interp SEE NOTE COVID-19 Eval Order SARS-CoV-2, RNA, NAAT Hospital Course (1) Major depressive disorder with current active episode: (2) Constipation: 01/14/2021We will continue Remeron at 30 mg p.o. nightly. We will continue with Colace,Ambien and Ativan as needed. 01/13/2021Will increase dose of Remeron to 30 mg p.o. nightly. 01/12/21: patient declines titration of Remeron to 30 mg, reviewed that Dr. Loving to assume care in am and can provide a second opinion. 01/11/21: resume Miralax in am. Shift Ambien back to standard hs dosing. Consider titration of Remeron tomorrow. 01/10/21: scale back bowel regimen, continue BID Ativan, Remeron 15 mg hs, and standing Ambien. Patient less hopeless today but not eating consistently and remains unable to care for self outside of the hospital. 01/09/21: patient hesitant but ultimately agreed to some standing (temporary) doses of Ativan, continue Remeron trial and bowel regimen. 01/08/21: patient agreed to bowel regimen (miralax and colace), celiac antibody testing and vitamin levels given reports of restless legs/malabsorption. Risks/benefits/alternatives reviewed re: trial of Remeron 15 mg po qhs. Patient agreed to trial starting this hs. 01/07/21: The patient was admitted to the [facility] ([facility] health unit) on q15 min checks (behavioral with suicide precautions) for safety. The patient will participate in group, recreational, and milieu therapies and will be offered additional individual and family sessions as clinically appropriate. Will taper Lexapro to 5 mg for 2 days and then d/c as able to tolerate/worse on higher dose and completed full trial. Resume gabapentin as previously effective for hs anxiety/restless legs/cramps and likely to be beneficial for pain. Will hold starting a new antidepressant until constipation resolved, as already taken a laxative and a suppository with minimal benefit will order stat fleet enema. Mental Health & Subst Abuse Tx Psychiatrist Name of Psychiatrist: [facility] Psychiatrist's Date of Appointment with Psychiatrist: 01/21/21 Time of Appointment with Psychiatrist: 10:30am Psychiatric Appointment Comment: *appt. will be on phone* [address] [employer] [employer] [facility] Psychiatrist Release of Information: Obtained, Reviewed and Signed Therapist Name of Therapist: [facility] Date of Therapist Appointment: 01/17/21 Time of Therapist Appointment: 11am Therapy Appointment Comment: [address]ist Release of Information: Obtained, Reviewed and Signed Post Discharge Appointments Primary Care Physician Name Of Family Doctor: [facility]anjitEliazar [facility] Date of Appointment with PCP: 01/17/21 Time of Appointment with PCP: 4:10pm [facility]ment [facility] [address] [facility] [place] [address] Primary Care Release of Information: Obtained, Reviewed and Signed Smoking Cessation Counseling Tobacco Cessation Medication Prescribed at Discharge: Not Applicable/Non-Smoker Other #1: Name of Aftercare Appointment: [facility] Phone Number of Aftercare Appointment: [phone] Date of Aftercare Appointment: 01/28/21 Time of Aftercare Appointment: 1 p.m Aftercare Appointment Comment: *appt. will be on phone* [address] [employer] [facility] Release of Information Aftercare Appointment: Obtained, Reviewed and Signed Contact Information Discharge Discharge [address] [address] [place], [place] [address] [id number] Discharge Plan Discharge Items Patient Disposition: Home - Self-Care Reason For Visit: RUMINATIVE DEPRESSION Discharge Diagnosis: Major Depressive Disorder Activity: Resume your previous activity Non-emergency contact: Primary Care Provider, Psychiatrist and Therapist Call non-emergency contact if: you have any medication questions and your symptoms worsen Follow-up/Referrals: Delores Boland PA-C [Primary Care Provider] - Diet: Regular Addtl Attending Provider Instructions: SPECIAL CARE INSTRUCTIONS: 1. Follow through with your scheduled aftercare appointments. If unable to keep an appointment, please call to reschedule. 2. Take your medication only as prescribed. Medication should not be changed or stopped without the approval of your doctor. In the event of worsening symptoms or concerns about side effects, contact your doctor immediately. 3. Utilize new healthy coping skills, anger management skills, and stress management skills learned during your hospitalization. Journal feelings and process them with a support person. Identify stressors or situations that may result in relapse, deterioration or inappropriate behaviors and develop a plan to deal with those issues. 4. If your coping skills are ineffective and you are in crisis, contact your outpatient providers for direction. If unable to reach your providers, please call the [facility] CRISIS LINE AT , go to the [facility] walk-in center at [address] [place] [address] A, [place], or go to the closest Emergency Room. 5. Avoid alcohol and un-prescribed drugs. 6. You have been provided with the Mental Health Advance Directives Pamphlet for your review. 7. Your condition is stable for discharge to outpatient level of care, but recovery is an ongoing process. Ifthoughts to harm yourself or others return, follow the safety plan developed during your stay. Planning for a safe return home includes securing weapons. Our treatment team recommends weaponsbe removed from the home until your outpatient provider reassesses your progress. In rare cases where the items themselvescannot be removed, guns and ammunitionshould be secured separatelyand keys stored by a reliable personoutside of the home. If you were admitted on an involuntary commitment, the police or other legal authorities may be involved in this process. AFTERCARE APPOINTMENTS: * Please call your insurance company prior to your scheduled appointment to confirm your aftercare providers are covered. Take your insurance information to your appointments. WHO TO CALL AND WHEN: Medical Emergencies: For questions or emergencies related to your hospital stay, please contact the Inpatient Behavioral Health Unit at [phone]. A rn psychiatric is on-call 16/11 for the Behavioral Health Unit for emergencies At any time you feel your situation is an emergency, you may also call 911 immediately. Pending Studies at Discharge: No Stand-Alone Forms: My [facility], Smoking Cessation Medications and DC Order Prescriptions: New polyethylene glycol 3350 [Miralax] 17 gram Powder In Packet 17 g PO QAM PRN (Reason: Constipation) 30 Days Qty: 30 RF: 0 lorazepam 0.5 mg Tablet 0.5 mg PO BIDM 30 Days Qty: 60 RF: 0 docusate sodium 100 mg Capsule 100 mg PO BID 30 Days Qty: 60 RF: 0 gabapentin 300 mg Capsule 300 mg PO HS 30 Days Qty: 30 RF: 0 mirtazapine 15 mg Tablet 30 mg PO HS 30 Days Qty: 60 RF: 0 Continued famotidine 20 mg Tablet 20 mg PO DAILY PRN (Reason: HEART BURN) RF: 0 acetaminophen 500 mg Capsule 1,000 mg PO Q6 PRN (Reason: Pain) RF: 0 omeprazole magnesium [Prilosec OTC] 20 mg Tablet,Delayed Release (Dr/Ec) 20 mg PO DAILY RF: 0 zolpidem [Ambien] 5 mg Tablet 10 mg PO HS PRN (Reason: Sleep) 30 Days Qty: 60 RF: 0 Discontinued alprazolam [Xanax] 0.5 mg Tablet 0.5 mg PO DAILY PRN (Reason: Anxiety) RF: 0 escitalopram oxalate 20 mg tablet 20 mg PO DAILY RF: 0 Discharge Orders: Discharge Order (Routine); Ordered 01/15/21 Ordered By: Filiberto Loving Admission Data Admit Date/Time: 01/06/21 17:36 Attending Provider: Pearl Page Admit Provider: Pearl Page Primary Care Provider: Delores Boland Other Interventions: Discharge Summary Assessment (RN) Last Done: 01/15/21 11:41 PSY Interdisciplinary Discharge Planning Last Done: 01/15/21 11:37 Coding Level of Care Code 45657 D/C day mgmt > 30 min Diagnoses Major depressive disorder with current active episode F32.9 Constipation K59.00 Constipation type: unspecified constipation type Time Spent (min) 45
== END 2021-01-15 12:06 | disposition home or self-care (01) | DRG 881 ==
LOC: ED 13:16 → 3S 17:24